=== PATIENT | female | born 1965 | race Caucasian/White ===

== ENCOUNTER 2016-08-05 11:54 | Inpatient (IN) | payer MEDICARE, OTHER ==
[~2016-08-05] VITALS: Ht 162.6 cm; Wt 80.4 kg
[~2016-08-05 11:54] MED LIST: CHLO100 PO; CHLO50 PO; DULO1CAP2 PO; GABA800T PO; LAMO100 PO; TEGR200T PO
[2016-08-05 12:28] VITALS: BP 132/76; PULSE 79; RESP 18; TEMP 97.9; O2SAT 97
[2016-08-05 13:28] LABS: BASOPHIL % 0.3 % (0.0-2.0); EOSINOPHIL % 0.3 % (0.0-4.0); HEMATOCRIT 37.2 % (35.0-46.0); HEMO FLAGS DIFF FINAL; LYMPH % 19.6 % (9.0-44.0); LYMPHOCYTE # 2.6 TH/MM3 (1.0-4.8); MEAN CELL VOLUME 91.7 FL (80.0-100.0); MEAN CORPUSCULAR HEMOGLOBIN 30.9 PG (27.0-34.0); MEAN CORPUSCULAR HGB CONC 33.7 % (32.0-36.0); MONO % 4.8 % (0.0-8.0); PLATELET COUNT 362 TH/MM3 (150-450); RED BLOOD COUNT 4.06 MIL/MM3 (4.00-5.30); RED CELL DISTRIBUTION WIDTH 12.8 % (11.6-17.2); WHITE BLOOD COUNT 13.3 TH/MM3 (4.0-11.0)
[2016-08-05 13:40] LABS: BLOOD, URINE NEG (NEG); GLUCOSE,URINE 1000 mg/dL (NEG); KETONE, URINE NEG (NEG); NITRITE,URINE NEG (NEG); PH, URINE 5.5 (5.0-8.5); URINE COLOR LIGHT-YELLOW (YELLW/STRAW)
[2016-08-05 13:41] LABS: ALT (GPT) 37 U/L (10-53); ANION GAP 11 MEQ/L (5-15); AST (GOT) 30 U/L (15-37); BICARBONATE 21.3 MEQ/L (21.0-32.0); CHLORIDE 104 MEQ/L (98-107); GLOMERULAR FILTRATION RATE 67 ML/MIN (>89); POTASSIUM 4.4 MEQ/L (3.5-5.1); SODIUM (NA) 136 MEQ/L (136-145)
[2016-08-05 13:50] LABS: ALKALINE PHOSPHATASE 91 U/L (45-117); BLOOD UREA NITROGEN 20 MG/DL (7-18); TOTAL BILIRUBIN ADULT 0.2 MG/DL (0.2-1.0)
[2016-08-05 13:51] LABS: ACETAMINOPHEN LESS THAN 2.0 MCG/ML (10.0-30.0)
[2016-08-05 13:52] LABS: COMMENT (UR) CULT NOT INDICATED; CULTURE IF INDICATED CULT NOT INDICATED
[2016-08-05 14:00] LABS: AMPHETAMINE, URINE NEG (NEG); BARBITURATES, URINE NEG (NEG); COCAINE, URINE NEG (NEG)
--- NOTE | 2016-08-05 14:18 | PD ---
HPI Chief Complaint: Medical Clearance Time Seen by Provider: 12:45 Travel History International Travel<30 days: No Contact w/Intl Traveler<30days: No Traveled to known affect area: No History of Present Illness HPI Patient's 51-year-old female who is brought into emergency Department under Christiansen act for suicidal ideations. Patient reports to me that she is suicidal. She states that she is tired of it all. She reports a history of suicide attempts, in January 2015. She reports taking pills, whenever pills she can get her hands on. She denies any drug use or alcohol use. She endorses visual and auditory hallucinations. Patient endorses a history of bipolar disorder with rapid cycling, psychosis, suicidal ideations, borderline personality disorder, PTSD, OCD. She denies any physical complaints at this time. PFSH Past Medical History Bipolar Disorder: Yes (with rapid cycling) Anxiety: Yes Depression: Yes Diabetes: Yes Patient Takes Glucophage: Yes Psychiatric: Yes (borderline personality disorder, PTSD, OCD, psychosis, paranoia) ?: Not Past Surgical History Section: Yes (x4) Hysterectomy: Yes Social History Alcohol Use: Yes Tobacco Use: No Substance Use: No Allergies-Medications (Allergen,Severity, Reaction): Coded Allergies: Depakote (Verified Allergy, Severe, Anaphylaxis, 08/05/16) Ibuprofen (Verified Allergy, Severe, Anaphylaxis, 08/05/16) Latex (Verified Allergy, Severe, Rash, 08/05/16) [place] (Verified Allergy, Severe, Anaphylaxis, 08/05/16) Aspirin (Verified Allergy, Unknown, 08/05/16) Nonsteroidal Anti-Inflammatory Agts (Verified Allergy, Unknown, 08/05/16) Reported Meds & Prescriptions Reported Meds & Active Scripts Active Thorazine 50 M50 Mg 50 Mg Tab 50 Mg PO DAILY@0600 Thorazine 50 M50 Mg 50 Mg Tab 50 Mg PO DAILY@1300 Thorazine 406254 Mg 100 Mg Tab 100 Mg PO HS Reported Tegretol (Carbamazepine) 200 Mg Tab 200 Mg PO BID Lamictal (Lamotrigine) 100 Mg Tab 100 Mg PO BID Duloxetine DR (Duloxetine HCl) 30 Mg Capdr 30 Mg PO DAILY [id number] M1 800 Mg Tab 800 Mg PO QID Review of Systems Except as stated in HPI: all other systems reviewed are Neg Psychiatric: Positive: Depression, Suicidal Ideations, Mood Disorder, No: Substance Abuse, Homicidal Ideation Physical Exam Narrative GENERAL: Well-developed, well-nourished, alert female. Sitting comfortably in the ambulance, in no acute distress. SKIN: Warm and dry. HEAD: Atraumatic. Normocephalic. EYES: Pupils equal and round. No scleral icterus. No injection or drainage. ENT: No nasal bleeding or discharge. Mucous membranes pink and moist. NECK: Trachea midline. No JVD. CARDIOVASCULAR: Regular rate and rhythm. No murmur appreciated. RESPIRATORY: No accessory muscle use. Clear to auscultation. Breath sounds equal bilaterally. GASTROINTESTINAL: Abdomen soft, non-tender, nondistended. Hepatic and splenic margins not palpable. MUSCULOSKELETAL: No obvious deformities. No clubbing. No cyanosis. No edema. NEUROLOGICAL: Awake and alert. No obvious cranial nerve deficits. Motor grossly within normal limits. Normal speech. PSYCHIATRIC: Depressed mood and affect; insight and judgment impaired Data Data Last Documented VS Vital Signs Date Time Temp Pulse Resp B/P Pulse Ox O2 Delivery O2 Flow Rate FiO2 08/05/16 12:28 97.9 79 18 132/76 97 Orders Complete Blood Count With Diff (08/05/16 12:34) Comprehensive Metabolic Panel (08/05/16 12:34) Urinalysis - C+S If Indicated (08/05/16 12:34) Drug Screen, Random Urine (08/05/16 12:34) Alcohol (Ethanol) (08/05/16 12:34) Salicylates (Aspirin) (08/05/16 12:34) Tylenol (Acetaminophen) (08/05/16 12:34) Psych Screen (08/05/16 12:34) Labs Laboratory Tests Test 08/05/16 08/05/16 08/05/16 00:00 13:00 13:10 Urine Opiates Screen NEG Urine Barbiturates Screen NEG Urine Amphetamines Screen NEG Urine Benzodiazepines Screen NEG Urine Cocaine Screen NEG Urine Cannabinoids Screen NEG Urine Color LIGHT-YELLOW Urine Turbidity CLEAR Urine pH 5.5 Urine Specific [place] 1.008 Urine Protein NEG mg/dL Urine Glucose (UA) 1000 mg/dL Urine Ketones NEG mg/dL Urine Occult Blood NEG Urine Nitrite NEG Urine Bilirubin NEG Urine Urobilinogen LESS THAN 2.0 MG/DL Urine Leukocyte Esterase NEG Urine WBC LESS THAN 1 /hpf Microscopic Urinalysis Comment CULT NOT INDICATED White Blood Count 13.3 TH/MM3 Red Blood Count 4.06 MIL/MM3 Hemoglobin 12.5 GM/DL Hematocrit 37.2 % Mean Corpuscular Volume 91.7 FL Mean Corpuscular Hemoglobin 30.9 PG Mean Corpuscular Hemoglobin 33.7 % Concent Red Cell Distribution Width 12.8 % Platelet Count 362 TH/MM3 Mean Platelet Volume 7.0 FL Neutrophils (%) (Auto) 75.0 % Lymphocytes (%) (Auto) 19.6 % Monocytes (%) (Auto) 4.8 % Eosinophils (%) (Auto) 0.3 % Basophils (%) (Auto) 0.3 % Neutrophils # (Auto) 10.0 TH/MM3 Lymphocytes # (Auto) 2.6 TH/MM3 Monocytes # (Auto) 0.6 TH/MM3 Eosinophils # (Auto) 0.0 TH/MM3 Basophils # (Auto) 0.0 TH/MM3 CBC Comment DIFF FINAL Differential Comment Sodium Level 136 MEQ/L Potassium Level 4.4 MEQ/L Chloride Level 104 MEQ/L Carbon Dioxide Level 21.3 MEQ/L Anion Gap 11 MEQ/L Blood Urea Nitrogen 20 MG/DL Creatinine 0.88 MG/DL Estimat Glomerular Filtration 67 ML/MIN Rate Random Glucose 106 MG/DL Calcium Level 9.4 MG/DL Total Bilirubin 0.2 MG/DL Aspartate Amino Transf 30 U/L (AST/SGOT) Alanine Aminotransferase 37 U/L (ALT/SGPT) Alkaline Phosphatase 91 U/L Total Protein 8.7 GM/DL Albumin 4.4 GM/DL Salicylates Level LESS THAN 1.7 MG/DL Acetaminophen Level LESS THAN 2.0 MCG/ML Ethyl Alcohol Level LESS THAN 3 MG/DL MDM Medical Decision Making Medical Screen Exam Complete: Yes Emergency Medical Condition: Yes Interpretation(s) Laboratory Tests Test 08/05/16 08/05/16 08/05/16 00:00 13:00 13:10 Urine Opiates Screen NEG Urine Barbiturates Screen NEG Urine Amphetamines Screen NEG Urine Benzodiazepines Screen NEG Urine Cocaine Screen NEG Urine Cannabinoids Screen NEG Urine Color LIGHT-YELLOW Urine Turbidity CLEAR Urine pH 5.5 Urine Specific [place] 1.008 Urine Protein NEG mg/dL Urine Glucose (UA) 1000 mg/dL Urine Ketones NEG mg/dL Urine Occult Blood NEG Urine Nitrite NEG Urine Bilirubin NEG Urine Urobilinogen LESS THAN 2.0 MG/DL Urine Leukocyte Esterase NEG Urine WBC LESS THAN 1 /hpf Microscopic Urinalysis Comment CULT NOT INDICATED White Blood Count 13.3 TH/MM3 Red Blood Count 4.06 MIL/MM3 Hemoglobin 12.5 GM/DL Hematocrit 37.2 % Mean Corpuscular Volume 91.7 FL Mean Corpuscular Hemoglobin 30.9 PG Mean Corpuscular Hemoglobin 33.7 % Concent Red Cell Distribution Width 12.8 % Platelet Count 362 TH/MM3 Mean Platelet Volume 7.0 FL Neutrophils (%) (Auto) 75.0 % Lymphocytes (%) (Auto) 19.6 % Monocytes (%) (Auto) 4.8 % Eosinophils (%) (Auto) 0.3 % Basophils (%) (Auto) 0.3 % Neutrophils # (Auto) 10.0 TH/MM3 Lymphocytes # (Auto) 2.6 TH/MM3 Monocytes # (Auto) 0.6 TH/MM3 Eosinophils # (Auto) 0.0 TH/MM3 Basophils # (Auto) 0.0 TH/MM3 CBC Comment DIFF FINAL Differential Comment Sodium Level 136 MEQ/L Potassium Level 4.4 MEQ/L Chloride Level 104 MEQ/L Carbon Dioxide Level 21.3 MEQ/L Anion Gap 11 MEQ/L Blood Urea Nitrogen 20 MG/DL Creatinine 0.88 MG/DL Estimat Glomerular Filtration 67 ML/MIN Rate Random Glucose 106 MG/DL Calcium Level 9.4 MG/DL Total Bilirubin 0.2 MG/DL Aspartate Amino Transf 30 U/L (AST/SGOT) Alanine Aminotransferase 37 U/L (ALT/SGPT) Alkaline Phosphatase 91 U/L Total Protein 8.7 GM/DL Albumin 4.4 GM/DL Salicylates Level LESS THAN 1.7 MG/DL Acetaminophen Level LESS THAN 2.0 MCG/ML Ethyl Alcohol Level LESS THAN 3 MG/DL Vital Signs Date Time Temp Pulse Resp B/P Pulse Ox O2 Delivery O2 Flow Rate FiO2 08/05/16 12:28 97.9 79 18 132/76 97 Differential Diagnosis Depression versus mood disorder versus substance abuse versus psychosis versus suicidal ideations versus Narrative Course Patient is a 51-year-old female who was brought into the emergency department for suicidal ideations under a Christiansen act. Patient admits to having suicidal thoughts as well as previous suicide attempts. She had no physical complaints at this time. Labs reviewed and are unremarkable. Patient's vital signs are stable. Patient is medically cleared for psychiatric evaluation at this time. Diagnosis Primary Impression: Medical clearance for psychiatric admission Condition: Stable Alonso,Ricarda [employer] SWITCH[employer] Aug 05, 2016 14:18
[2016-08-05] MEDS ORDERED: THORAZINE PO (16:40)
[2016-08-05] MEDS ORDERED: TRAZ100T4 PO (16:40)
[2016-08-05] MEDS ORDERED: CYMB60CA PO (16:40)
[2016-08-05] MEDS ORDERED: PERC5TAB12 PO (16:40)
[2016-08-05] MEDS ORDERED: diphenhydrAMINE HCL 50 MG CAP PO PRN (20:45)
[2016-08-05] MEDS ORDERED: LORazepam 2 MG/ML VIAL IM PRN (20:45)
[2016-08-05] MEDS ORDERED: ACETAMINOPHEN 325 MG TAB PO PRN (20:45)
[2016-08-05] MEDS ORDERED: BENZTROPINE MESYLATE 2 MG/2 ML VIAL IM PRN (20:45)
[2016-08-05] MEDS ORDERED: ALUMINUM/MAGNESIUM/SIMETH 30 ML CUP PO PRN (20:45)
[2016-08-05] MEDS ORDERED: MAGNESIUM HYDROXIDE SUSP 30 ML CUP PO PRN (20:45)
[2016-08-05] MEDS ORDERED: BENZTROPINE MESYLATE 1 MG TAB PO PRN (20:45)
[2016-08-05 22:00] VITALS: BP 109/60; PULSE 68; RESP 17; O2SAT 96
[2016-08-06 00:24] VITALS: BP 127/84; PULSE 71; RESP 18; TEMP 98.2; O2SAT 96
[2016-08-06] MEDS: LORazepam 1 MG TAB PO PRN ×3 (00:59→18:27)
[2016-08-06 05:52] VITALS: BP 124/80; PULSE 68; RESP 18; TEMP 98; O2SAT 96
[2016-08-06 07:21] LABS: AUTOMATED NEUTROPHIL # 7.7 TH/MM3 (1.8-7.7); BASOPHIL % 0.1 % (0.0-2.0); EOSINOPHIL % 0.4 % (0.0-4.0); HEMATOCRIT 37.7 % (35.0-46.0); HEMO FLAGS DIFF FINAL; LYMPH % 21.9 % (9.0-44.0); LYMPHOCYTE # 2.3 TH/MM3 (1.0-4.8); MEAN CORPUSCULAR HEMOGLOBIN 30.6 PG (27.0-34.0); MONO % 5.4 % (0.0-8.0); NEUT % 72.2 % (16.0-70.0); PLATELET COUNT 352 TH/MM3 (150-450); RED BLOOD COUNT 4.19 MIL/MM3 (4.00-5.30); RED CELL DISTRIBUTION WIDTH 12.8 % (11.6-17.2); WHITE BLOOD COUNT 10.6 TH/MM3 (4.0-11.0)
[2016-08-06 07:37] LABS: ANION GAP 11 MEQ/L (5-15); AST (GOT) 21 U/L (15-37); BICARBONATE 22.4 MEQ/L (21.0-32.0); BLOOD UREA NITROGEN 20 MG/DL (7-18); CHLORIDE 105 MEQ/L (98-107); GLOMERULAR FILTRATION RATE 72 ML/MIN (>89); POTASSIUM 3.9 MEQ/L (3.5-5.1); SODIUM (NA) 138 MEQ/L (136-145)
[2016-08-06 07:48] LABS: ALKALINE PHOSPHATASE 86 U/L (45-117); ALT (GPT) 32 U/L (10-53); HDL CHOLESTEROL 42.8 MG/DL (40.0-60.0); TOTAL BILIRUBIN ADULT 0.2 MG/DL (0.2-1.0)
[2016-08-06] MEDS: REMOVE OLD PATCH T-DERMAL SCH (09:00)
[2016-08-06] MEDS: NICOTINE 21 MG/24 HR PATCH T-DERMAL SCH (09:00)
[2016-08-06] MEDS ORDERED: DEXTROSE 50% IN WATER 50 ML VIAL(D50) IV PUSH PRN (12:30)
[2016-08-06] MEDS ORDERED: GLUCAGON 1 MG/ML VIAL OTHER PRN (12:30)
[2016-08-06] MEDS: GABAPENTIN 400 MG CAP PO SCH ×3 (13:00→20:53)
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
[2016-08-06] MEDS: oxyCODONE/ACETAMINOPHEN 5 MG/325 MG TAB PO PRN ×2 (14:13→20:57)
[2016-08-06] MEDS ORDERED: CHLO100T2 PO (15:52)
--- NOTE | 2016-08-06 15:53 | PD.CONS ---
HPI Service [facility] Consult Requested By Diabetes Reason for Consult This is a 51-year-old female with history of diabetes mellitus, anxiety, depression, bipolar disorder and chronic back pain, presented to emergency department as a Christiansen act for suicidal ideations. We are being consulted for diabetes mellitus. Per patient, she was diagnosed with diabetes a few months ago and she was started on Januvia and Invokamet. However the latter is not available in the hospital. Per patient, she doesn't know her hemoglobin A1c. She denies any chest pain, shortness, nausea, vomiting, polyuria or polydipsia. Primary Care Physician No Primary Care Physician Diagnoses: Review of Systems ROS Limitations: Other (All other pertinent systems were reviewed and are negative.) Past Family Social History Allergies: Coded Allergies: Depakote (Verified Allergy, Severe, Anaphylaxis, 08/05/16) Ibuprofen (Verified Allergy, Severe, Anaphylaxis, 08/05/16) Latex (Verified Allergy, Severe, Rash, 08/05/16) [place] (Verified Allergy, Severe, Anaphylaxis, 08/05/16) Aspirin (Verified Allergy, Unknown, 08/05/16) Nonsteroidal Anti-Inflammatory Agts (Verified Allergy, Unknown, 08/05/16) Past Medical History Diabetes mellitus Anxiety Bipolar disorder Depression PTSD Chronic back pain DJD Past Surgical History section hysterectomy Reported Medications Chlorpromazine (Chlorpromazine HCl) 100 Mg Tab 100 Mg PO BID Percocet (Oxycodone-Acetaminophen) 5-325 mg Tab 1 Tab PO Q6H PRN Trazodone (Trazodone HCl) 100 Mg Tab 100 Mg PO HS Cymbalta DR (Duloxetine HCl) 60 Mg Capdr 60 Mg PO BID Family History Father has diabetes Social History Patient smokes, about 40 years, stopped in March. Occasional alcohol use. Physical Exam Vital Signs Vital Signs Date Time Temp Pulse Resp B/P Pulse Ox O2 Delivery O2 Flow Rate FiO2 08/06/16 05:52 98.0 68 18 124/80 96 08/06/16 00:24 98.2 71 18 127/84 96 08/05/16 22:00 68 17 109/60 96 Room Air Physical Exam Not in distress, well-nourished, looks stated age PERRL, pink conjunctiva without injection, anicteric Nose without bleeding, airway patent, oropharynx clear Supple neck, no masses or thyromegaly, trachea midline Normal rate and regular rhythm, no murmurs gallops or rubs appreciated. Clear to auscultation and symmetric bilaterally, normal respiratory effort. Normal bowel sounds, soft, non-tender, nondistended, no guarding. Extremities without clubbing, cyanosis, or edema. No rash of generalized distribution. Skin is warm and dry. AAO x3, no cranial nerve deficits, moves all 4 extremities, no focal neurologic deficits Normal mood, appropriate affect Laboratory Laboratory Tests Test 08/06/16 06:07 White Blood Count 10.6 Red Blood Count 4.19 Hemoglobin 12.8 Hematocrit 37.7 Mean Corpuscular Volume 90.0 Mean Corpuscular Hemoglobin 30.6 Mean Corpuscular Hemoglobin 34.0 Concent Red Cell Distribution Width 12.8 Platelet Count 352 Mean Platelet Volume 7.2 Neutrophils (%) (Auto) 72.2 Lymphocytes (%) (Auto) 21.9 Monocytes (%) (Auto) 5.4 Eosinophils (%) (Auto) 0.4 Basophils (%) (Auto) 0.1 Neutrophils # (Auto) 7.7 Lymphocytes # (Auto) 2.3 Monocytes # (Auto) 0.6 Eosinophils # (Auto) 0.0 Basophils # (Auto) 0.0 CBC Comment DIFF FINAL Differential Comment Sodium Level 138 Potassium Level 3.9 Chloride Level 105 Carbon Dioxide Level 22.4 Anion Gap 11 Blood Urea Nitrogen 20 Creatinine 0.83 Estimat Glomerular Filtration 72 Rate Random Glucose 129 Calcium Level 9.0 Total Bilirubin 0.2 Aspartate Amino Transf 21 (AST/SGOT) Alanine Aminotransferase 32 (ALT/SGPT) Alkaline Phosphatase 86 Total Protein 8.3 Albumin 4.1 Triglycerides Level 544 Cholesterol Level 262 LDL Cholesterol HDL Cholesterol 42.8 Cholesterol/HDL Ratio 6.12 Thyroid Stimulating Hormone 2.040 3rd Gen Result Diagram: 08/06/16 0607 08/06/16 0607 Assessment and Plan Assessment and Plan This is a 51-year-old female with history of suicidal ideations and diabetes admitted to psych unit for suicidal ideations. We were consulted for further management for diabetes Diabetes mellitus - ? Control, check hemoglobin A1c, continue sliding scale for now, since Invokamet is not available, can start metformin 500 mg twice a day and Januvia. Check beaches, we will follow along. PTSD, depression-further management per psychiatry Dyslipidemia, hypertriglyceridemia- newly diagnosed, we'll start statin Thank you very much for this consult, we'll follow along with you. Anni Ellis MD Aug 06, 2016 15:53
[2016-08-06 15:54] LABS: HEMOGLOBIN A1a 0.9 %; HEMOGLOBIN A1b 1.8 %; HEMOGLOBIN Ao 86.1 %; HEMOGLOBIN LA1C 2.1 %; HEMOGLOBIN P3 3.7 %
[2016-08-06] MEDS: INSULIN ASPART SUPPLEMENTAL SCALE SQ SCH ×2 (16:00→21:00)
[2016-08-06] MEDS: metFORMIN HCL 500 MG TAB PO SCH (18:25)
[2016-08-06 18:47] VITALS: BP 121/68; PULSE 77; RESP 18; TEMP 98.8; O2SAT 99
[2016-08-06] MEDS: PRAVASTATIN SOD 40 MG TAB PO SCH (20:52)
[2016-08-06] MEDS: DULoxetine HCl DR 60 MG CAP PO SCH (20:52)
[2016-08-06] MEDS: traZODone HCL 50 MG TAB PO SCH (20:52)
[2016-08-06] MEDS: lamoTRIgine 25 MG TAB PO SCH (20:53)
[2016-08-06] MEDS ORDERED: INVOKAMET PO SCH (21:00)
[2016-08-06] MEDS: GEMFIBROZIL 600 MG TAB PO SCH (21:48)
[2016-08-06 22:16] LABS: HEMOGLOBIN A1a 0.8 %; HEMOGLOBIN A1b 1.1 %; HEMOGLOBIN Ao 86.2 %; HEMOGLOBIN F 0.7 %; HEMOGLOBIN LA1C 1.9 %; HEMOGLOBIN P3 3.7 %
[2016-08-07 05:39] VITALS: BP 143/87; PULSE 85; RESP 16; TEMP 97.8; O2SAT 95
[2016-08-07] MEDS: INSULIN ASPART SUPPLEMENTAL SCALE SQ SCH ×4 (06:17→21:00)
[2016-08-07] MEDS: GABAPENTIN 400 MG CAP PO SCH ×4 (08:25→20:35)
[2016-08-07] MEDS: metFORMIN HCL 500 MG TAB PO SCH ×2 (08:26→18:16)
[2016-08-07] MEDS: oxyCODONE/ACETAMINOPHEN 5 MG/325 MG TAB PO PRN ×4 (08:26→15:56)
[2016-08-07] MEDS: DULoxetine HCl DR 60 MG CAP PO SCH ×2 (08:26→20:36)
[2016-08-07] MEDS: NICOTINE 21 MG/24 HR PATCH T-DERMAL SCH (08:27)
[2016-08-07] MEDS: REMOVE OLD PATCH T-DERMAL SCH (09:00)
[2016-08-07] MEDS: LORazepam 1 MG TAB PO PRN ×3 (10:55→16:37)
--- NOTE | 2016-08-07 14:23 | HHI.PYPN ---
Subjective Remarks Patient seen and examined with counselor. Chart reviewed. Case discussed with nursing staff. On my examination today, the patient reports that her mood is a little better but she complains of high anxiety. When I question her further about this she describes more of a physical sensation saying "I can't sit still. " This is apparently fairly long-standing, and her sense of restlessness is greater during the day than at night. She cannot recall if this sensation started after a particular medication addition or adjustment. Suicidal ideation is lessening and the patient denies any urge to hurt herself on the inpatient psychiatric unit. No other potential side effects from medications. Review of Systems Other Patient is troubled by a sense of restlessness. No other physical complaints today. Objective Alert: Yes [place]: Person (O x 3) Mood: Anxious Affect: Blunted Memory Intact: Comment (intact) Hallucinations: Other (no AVH) Delusions: No Delusion Type: Other (no delusions) Suicidal: Ideation (suicidal ideation lessening. No reported urge to hurt herself on the inpatient psychiatric unit.) Homicidal: Ideation (no homicidal ideation) Insight/Judgement Fair Remarks No hand tremor, no dystonia, no dyskinesia noted. Thought processes linear. Speech within normal limits for rate, tone and volume. No visible rash. Labs Labs reviewed. Vitals/IOs Vital Signs Date Time Temp Pulse Resp B/P Pulse Ox O2 Delivery O2 Flow Rate FiO2 08/07/16 05:39 97.8 85 16 143/87 95 08/05/16 22:00 Room Air Assessment & Plan Problem List: (1) Atypical bipolar disorder Assessment & Plan: Rule out component of akathisia from antipsychotic. ICD Code: F31.89 Assessment & Plan Patient describes an inner sense of restlessness and urge to move it sounds like it might be akathisia related to her use of antipsychotics. After discussion of the risks and benefits, we'll add Inderal 10 mg 3 times a day for the management of this restlessness. I have counseled the patient regarding safe standing on a beta jessica. Continue other psychotropics as ordered. Continue other medications and care as ordered. Justification for Cont. Inpt. Monitoring for impairments in safety. Education adjustments. Complicating conditions. Risk for decompensation. Discharge Planning Pending psychiatric stabilization. Request HC Surrog/Guard Advoc?: No Nemesio Eddy MD 20, 2017 14:23
[2016-08-07] MEDS: PROPRANOLOL HCL 10 MG TAB PO SCH ×2 (15:55→22:38)
[2016-08-07 19:29] VITALS: BP 118/72; PULSE 87; RESP 16; TEMP 98; O2SAT 96
[2016-08-07] MEDS: GEMFIBROZIL 600 MG TAB PO SCH (20:36)
[2016-08-07] MEDS: traZODone HCL 50 MG TAB PO SCH (20:36)
[2016-08-07] MEDS: lamoTRIgine 25 MG TAB PO SCH (20:36)
[2016-08-07] MEDS: PRAVASTATIN SOD 40 MG TAB PO SCH (20:36)
[2016-08-08] MEDS: PROPRANOLOL HCL 10 MG TAB PO SCH ×3 (05:28→21:20)
[2016-08-08] MEDS: INSULIN ASPART SUPPLEMENTAL SCALE SQ SCH ×4 (05:45→20:40)
[2016-08-08 06:20] VITALS: BP 137/75; PULSE 82; RESP 18; TEMP 97.7; O2SAT 97
[2016-08-08 08:00] VITALS: BP 116/76; PULSE 98; RESP 18; TEMP 98.4; O2SAT 98
[2016-08-08] MEDS: REMOVE OLD PATCH T-DERMAL SCH (09:00)
[2016-08-08] MEDS: metFORMIN HCL 500 MG TAB PO SCH ×2 (09:12→18:37)
[2016-08-08] MEDS: NICOTINE 21 MG/24 HR PATCH T-DERMAL SCH ×2 (09:12→09:30)
[2016-08-08] MEDS: GABAPENTIN 400 MG CAP PO SCH ×4 (09:12→20:36)
[2016-08-08] MEDS: DULoxetine HCl DR 60 MG CAP PO SCH ×2 (09:14→20:38)
[2016-08-08] MEDS: oxyCODONE/ACETAMINOPHEN 5 MG/325 MG TAB PO PRN ×2 (09:29→16:34)
--- NOTE | 2016-08-08 12:41 | HHI.PYPN ---
Subjective Remarks Pt seen and discussed with staff. She is compliant with medications and denies side effects. Mood remains depressed with suicidal ideations. She reports that at home she was not compliant with psychiatric medications. "I can take them here but when I'm home it gets all mixed up." No HI. Review of Systems Psychiatric: COMPLAINS OF: Depression, Suicidal Ideation Objective Alert: Yes [place]: Person (O x 3) Mood: Anxious Affect: Blunted Memory Intact: Comment (intact) Hallucinations: Other (no AVH) Delusions: No Delusion Type: Other (no delusions) Suicidal: Ideation (suicidal ideation lessening. No reported urge to hurt herself on the inpatient psychiatric unit.) Homicidal: Ideation (no homicidal ideation) Insight/Judgement limited Vitals/IOs Vital Signs Date Time Temp Pulse Resp B/P Pulse Ox O2 Delivery O2 Flow Rate FiO2 08/08/16 08:00 98.4 98 18 116/76 98 08/05/16 22:00 Room Air Assessment & Plan Problem List: (1) Atypical bipolar disorder ICD Code: F31.89 Assessment & Plan continue current tx plan. Estimated LOS: days Justification for Cont. Inpt. impairments in safety Request HC Surrog/Guard Advoc?: No Annetta Farias MD Aug 08, 2016 12:41
[2016-08-08] MEDS: LORazepam 1 MG TAB PO PRN (12:51)
[2016-08-08 19:22] VITALS: BP 102/66; PULSE 75; RESP 17; TEMP 98.1; O2SAT 96
[2016-08-08] MEDS: PRAVASTATIN SOD 40 MG TAB PO SCH (20:35)
[2016-08-08] MEDS: GEMFIBROZIL 600 MG TAB PO SCH (20:36)
[2016-08-08] MEDS: lamoTRIgine 25 MG TAB PO SCH (20:36)
[2016-08-08] MEDS: traZODone HCL 50 MG TAB PO SCH (20:36)
[2016-08-09] MEDS: PROPRANOLOL HCL 10 MG TAB PO SCH ×3 (05:43→20:33)
[2016-08-09 06:12] VITALS: BP 118/70; PULSE 69; RESP 16; TEMP 97.4; O2SAT 95
[2016-08-09] MEDS: INSULIN ASPART SUPPLEMENTAL SCALE SQ SCH (06:40)
[2016-08-09] MEDS: DULoxetine HCl DR 60 MG CAP PO SCH ×2 (08:30→20:33)
[2016-08-09] MEDS: GABAPENTIN 400 MG CAP PO SCH ×4 (08:31→20:33)
[2016-08-09] MEDS: metFORMIN HCL 500 MG TAB PO SCH ×2 (08:32→16:58)
[2016-08-09] MEDS: REMOVE OLD PATCH T-DERMAL SCH (09:00)
[2016-08-09] MEDS: oxyCODONE/ACETAMINOPHEN 5 MG/325 MG TAB PO PRN ×3 (09:34→22:02)
--- NOTE | 2016-08-09 10:25 | HHI.PR ---
Subjective Remarks Follow-up visit hypertension, diabetes, chronic back pain. Patient seen today. States she is doing well. Discuss lab results and review of medications. Denies pain and discomfort. Denies SOB/ dyspnea. Denies chest pain, palpitations, headaches, dizziness. Denies fevers, chills, n/v/d. Objective Vitals Vital Signs Date Time Temp Pulse Resp B/P Pulse Ox O2 Delivery O2 Flow Rate FiO2 08/09/16 06:12 97.4 69 16 118/70 95 08/08/16 19:22 98.1 75 17 102/66 96 Result Diagram: 08/06/1660608/06/16 0607 Objective Remarks GENERAL: This is a well-nourished, well-developed patient, in no apparent distress. HEENT: Normocephalic. Pupils equal round and reactive. Nose without bleeding. Airway patent. NECK: Trachea midline. No JVD. Supple. CARDIOVASCULAR: Regular rate and rhythm without murmurs, gallops, or rubs. RESPIRATORY: Clear to auscultation. Breath sounds equal bilaterally. No wheezes , rales, or rhonchi. GASTROINTESTINAL: Abdomen soft, non-tender, nondistended. Bowel Sounds normoactive x4. MUSCULOSKELETAL: Extremities without clubbing, cyanosis, or edema. NEUROLOGICAL: Awake and alert. Oriented x 3. No focal neuro deficit. BEST. Normal speech. A/P Problem List: (1) DM (diabetes mellitus) ICD Code: E11.9 Status: Acute (2) HTN (hypertension) ICD Code: I10 Status: Acute (3) Dyslipidemia ICD Code: E78.5 Status: Acute Assessment and Plan This is a 51-year-old female with history of suicidal ideations and diabetes admitted to psych unit for suicidal ideations. We were consulted for further management for diabetes Diabetes mellitus - patient was on INVOKANAMET as an outpatient. Started on metformin 500mg BID and Januvia, ISS - Hemoglobin A1c 5.2 - DC Januvia, continue with his metformin 500 twice a day. Discussed with patient to continue with metformin, and to not take INVOKANAMET. Continue with lifestyle change avoiding concentrated sweets and dietary changes as well as physical activity. She will follow up with her PCP as an outpatient to monitor hemoglobin A1c after 3 months. Verbalized understanding. PTSD, depression-further management per psychiatry Dyslipidemia, hypertriglyceridemia- started on pravastatin 40 mg. Discussed with patient, nursing Stable from Hospitalist standpoint. We will sign off. Reconsult as needed. Written by Zora Garza, acting as scribe for Dr. Ellis on 08/09/16 at 09: 25. The documentation accurately reflects the work performed [id number] by me on at [id number] Zora Alcocer Aug 09, 2016 10:25 Anni Ellis MD Aug 09, 2016 10:58
--- NOTE | 2016-08-09 13:28 | HHI.PYPN ---
Subjective Remarks Pt seen and discussed with staff. She reports mood is improving. She reports that she had SI yesterday but none today so far. Anxiety has decreased. She is tolerating medications without side effects. No SI/HI Objective Alert: Yes [place]: Person, Place, Date Mood: Calm, Depressed Affect: Restricted Memory Intact: Comment (intact) Hallucinations: Other (no AVH) Delusions: No Delusion Type: Other (no delusions) Suicidal: Ideation (suicidal ideation lessening. 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 Estimated LOS: days Justification for Cont. Inpt. risk of decompensation. Request HC Surrog/Guard Advoc?: Annetta Hazel MD Aug 09, 2016 13:27
[2016-08-09] MEDS: lamoTRIgine 25 MG TAB PO SCH (20:33)
[2016-08-09] MEDS: PRAVASTATIN SOD 40 MG TAB PO SCH (20:33)
[2016-08-09] MEDS: GEMFIBROZIL 600 MG TAB PO SCH (20:33)
[2016-08-09] MEDS: traZODone HCL 50 MG TAB PO SCH (20:33)
[2016-08-09 21:11] VITALS: BP 112/72; PULSE 79; TEMP 97.5; O2SAT 98
[2016-08-10 05:25] VITALS: BP 112/65; PULSE 62; RESP 15; TEMP 97.9; O2SAT 96
[2016-08-10] MEDS: PROPRANOLOL HCL 10 MG TAB PO SCH ×3 (05:26→21:25)
[2016-08-10] MEDS: REMOVE OLD PATCH T-DERMAL SCH (09:00)
[2016-08-10] MEDS: NICOTINE 21 MG/24 HR PATCH T-DERMAL SCH (09:00)
[2016-08-10] MEDS: GABAPENTIN 400 MG CAP PO SCH ×4 (09:02→20:29)
[2016-08-10] MEDS: DULoxetine HCl DR 60 MG CAP PO SCH ×2 (09:03→20:29)
[2016-08-10] MEDS: metFORMIN HCL 500 MG TAB PO SCH ×2 (09:03→17:46)
[2016-08-10] MEDS: oxyCODONE/ACETAMINOPHEN 5 MG/325 MG TAB PO PRN ×3 (09:46→23:06)
[2016-08-10 13:30] VITALS: BP 111/78; PULSE 63
--- NOTE | 2016-08-10 15:31 | HHI.PYPN ---
Subjective Remarks Patient seen and examined. Chart reviewed. Case discussed with nursing staff. No problematic behaviors reported. On my examination today, the patient is somewhat more dysphoric than she was when last we spoke. She says that she " had a really crappy day today." She says that she participated in psychotherapy group which stirred up some latent issues that are distressing her. She endorses vague suicidal ideation but denies any specific plan or intent at this time. Denies any urge to hurt herself on the unit. We discuss utilizing strategies to observe her negative feeling state, rather than engaging with it viscerally as she is now. Denies side effects from medications. Patient would like to titrate her Lamictal. Review of Systems Other No physical complaints. Objective Alert: Yes [place]: Person, Place, Date Mood: Depressed Affect: Restricted Memory Intact: Comment (remains intact) Hallucinations: Other (None) Delusions: No Delusion Type: Other (No delusional material) Suicidal: Ideation (+SI. No plan. No intent. No urge to hurt self on unit.) Homicidal: Ideation (None) Insight/Judgement Fair Remarks TP linear. Speech wnl for rate. No motoric abnormalities noted. No visible rash. No c/o rash. Labs Labs reviewed. No new labs. 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 Continue other psychotropics as ordered. Continue other medications and care as ordered. Justification for Cont. Inpt. Concern for impairments in safety. Medication adjustments. Risk for decompensation. Discharge Planning Pending psychiatric stabilization Request HC Surrog/Guard Advoc?: No Nemesio Eddy MD Aug 10, 2016 15:31
[2016-08-10 19:00] VITALS: BP 119/63; PULSE 72; RESP 16; TEMP 98.3; O2SAT 97
[2016-08-10] MEDS: PRAVASTATIN SOD 40 MG TAB PO SCH (20:29)
[2016-08-10] MEDS: lamoTRIgine 25 MG TAB PO SCH (20:29)
[2016-08-10] MEDS: traZODone HCL 50 MG TAB PO SCH (20:30)
[2016-08-10] MEDS: GEMFIBROZIL 600 MG TAB PO SCH (20:30)
[2016-08-10] MEDS: LORazepam 1 MG TAB PO PRN (20:30)
[2016-08-11] MEDS: PROPRANOLOL HCL 10 MG TAB PO SCH ×3 (05:37→21:48)
[2016-08-11 06:25] VITALS: BP 116/80; PULSE 76; RESP 17; TEMP 97.1
[2016-08-11] MEDS: DULoxetine HCl DR 60 MG CAP PO SCH ×2 (08:50→20:37)
[2016-08-11] MEDS: GABAPENTIN 400 MG CAP PO SCH ×4 (08:50→20:37)
[2016-08-11] MEDS: lamoTRIgine 25 MG TAB PO SCH ×2 (08:50→20:37)
[2016-08-11] MEDS: oxyCODONE/ACETAMINOPHEN 5 MG/325 MG TAB PO PRN ×2 (08:51→17:19)
[2016-08-11] MEDS: metFORMIN HCL 500 MG TAB PO SCH ×2 (08:51→17:20)
[2016-08-11 14:00] VITALS: BP 109/66; PULSE 69
--- NOTE | 2016-08-11 17:19 | HHI.PYPN ---
Subjective Remarks Pt seen and examined. Chart reviewed. Case d/w RN. Patient now with walker because she was complaining of some unsteadiness on her feet related to old ankle injury. No falls. On my examination today, patient is in better spirits today versus yesterday. She says that she has been dosing throughout the day, which is not undesirable in her case, she says. She denies any SI. She is anticipating a visit from her mother this evening and hopes that it goes well. Denies side effects from meds. Review of Systems Other Besides above, no physical complaints. Objective Alert: Yes [place]: Person, Place, Date Mood: Depressed (less so today) Affect: Blunted Memory Intact: Comment (Intact on clinical exam.) Hallucinations: Other (No AVH) Delusions: No Delusion Type: Other (No evident delusions) Suicidal: Ideation (Denies SI) Homicidal: Ideation (No HI) Insight/Judgement Fair Remarks TP linear. No visible rash. Labs Labs reviewed. No new labs. 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 Continue other medications and care as ordered. PT eval and falls prec. Justification for Cont. Inpt. Monitoring for safety. Risk for decompensation. Discharge Planning Pending psychiatric stabilization. Request HC Surrog/Guard Advoc?: No Nemesio Eddy MD Aug 11, 2016 17:19
[2016-08-11 18:30] VITALS: BP 107/71; PULSE 74; RESP 18; TEMP 97.8; O2SAT 98
[2016-08-11] MEDS: PRAVASTATIN SOD 40 MG TAB PO SCH (20:36)
[2016-08-11] MEDS: LORazepam 1 MG TAB PO PRN (20:37)
[2016-08-11] MEDS: traZODone HCL 50 MG TAB PO SCH (20:37)
[2016-08-11] MEDS: GEMFIBROZIL 600 MG TAB PO SCH (20:37)
[2016-08-12] MEDS: PROPRANOLOL HCL 10 MG TAB PO SCH ×4 (06:00→20:44)
[2016-08-12] MEDS: lamoTRIgine 25 MG TAB PO SCH ×2 (08:25→20:45)
[2016-08-12] MEDS: metFORMIN HCL 500 MG TAB PO SCH ×2 (08:26→17:48)
[2016-08-12] MEDS: oxyCODONE/ACETAMINOPHEN 5 MG/325 MG TAB PO PRN ×3 (08:26→21:20)
[2016-08-12] MEDS: GABAPENTIN 400 MG CAP PO SCH ×4 (08:26→20:43)
[2016-08-12] MEDS: DULoxetine HCl DR 60 MG CAP PO SCH ×2 (08:26→20:43)
[2016-08-12 12:42] VITALS: BP 106/68; PULSE 79
--- NOTE | 2016-08-12 15:38 | HHI.PYPN ---
Subjective Remarks Patient seen and examined. Chart reviewed. Case discussed with nursing staff who reports patient has been engaging in coloring instead of participating in psychotherapeutic groups. On my examination today, patient is in good spirits. Feels like psychotropic medications, in particular the addition of Lamictal, are working well. No SI or HI voiced. Denies side effects from medications. Review of Systems Other No new physical complaints Objective Alert: Yes [place]: Person, Place, Date Mood: Calm Affect: Other (fairly full and reactive) Memory Intact: Comment (remains intact) Hallucinations: Other (No AVH) Delusions: No Delusion Type: Other (no delusions) Suicidal: Ideation (no SI) Homicidal: Ideation (no HI) Insight/Judgement Fair Remarks Thought process linear. No visible rash. Labs Labs reviewed. No new labs. Bedside glucoses reviewed. 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 Plan to continue to slowly titrate Lamictal. Continue other medications and care as ordered. Justification for Cont. Inpt. Risk for decompensation Discharge Planning Patient would like to be placed in assisted living or [place] [facility] setting. Unclear whether she has skilled needs for [place] [facility] placement, but assisted living as a possibility. However, counselor informs me that the patient's resources to put towards an assisted-living are quite limited and so alternative disposition plans may need to be sought. Request HC Surrog/Guard Advoc?: No Nemesio Eddy MD Aug 12, 2016 15:37
[2016-08-12 18:49] VITALS: BP 121/58; PULSE 73; RESP 18; TEMP 97.3; O2SAT 98
[2016-08-12] MEDS: GEMFIBROZIL 600 MG TAB PO SCH (20:43)
[2016-08-12] MEDS: traZODone HCL 50 MG TAB PO SCH (20:44)
[2016-08-12] MEDS: PRAVASTATIN SOD 40 MG TAB PO SCH (20:44)
[2016-08-13] MEDS: oxyCODONE/ACETAMINOPHEN 5 MG/325 MG TAB PO PRN ×4 (02:49→21:52)
[2016-08-13 05:00] VITALS: BP 113/73; PULSE 63; RESP 18; TEMP 98.5; O2SAT 94
[2016-08-13] MEDS: PROPRANOLOL HCL 10 MG TAB PO SCH ×3 (06:15→21:22)
[2016-08-13] MEDS: lamoTRIgine 25 MG TAB PO SCH ×2 (09:06→21:22)
[2016-08-13] MEDS: GABAPENTIN 400 MG CAP PO SCH ×4 (09:06→21:21)
[2016-08-13] MEDS: DULoxetine HCl DR 60 MG CAP PO SCH ×2 (09:06→21:23)
[2016-08-13] MEDS: metFORMIN HCL 500 MG TAB PO SCH ×2 (09:07→18:00)
--- NOTE | 2016-08-13 11:16 | HHI.PYPN ---
Subjective Remarks Patient seen and examined. Chart reviewed. Case discussed with nursing staff. On my examination today, the patient reports that she feels generally good from a psychiatric standpoint but says that the "voices are real bad today. They are screaming." She says that the voices themselves are indistinct and certainly not command in nature but she is fearful that they will become command in nature as they have in the past. She denies clear stressor for worsening of reported voices. She requests titration of her Thorazine and in particular requests that the daytime dose be increased. She does not describe any urge to self injure on the unit nor does she describe any violent urge. Denies side effects from medications. Review of Systems Other No physical complaints today Objective Alert: Yes [place]: Person (O x 3) Mood: Calm Affect: Other (Remains full and reactive) Memory Intact: Comment (remains intact) Hallucinations: Auditory (Screaming), Visual (None) Delusions: No Delusion Type: Other (No evident delusional material) Suicidal: Ideation (No suicidal ideation) Homicidal: Ideation (no homicidal ideation) Insight/Judgement Fair Remarks No abnormal motor movements noted. Thought process linear. Labs Labs reviewed. No new labs. 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 Continue other psychotropics as ordered. Plan to continue to titrate Lamictal. Continue other care as ordered. Justification for Cont. Inpt. Monitoring for impairments in safety. Medication adjustments in process. Discharge Planning Pending psychiatric stabilization Request HC Surrog/Guard Advoc?: No Nemesio Eddy MD Aug 13, 2016 11:16
[2016-08-13 18:00] VITALS: BP 97/64; PULSE 81; RESP 18; TEMP 98.4; O2SAT 97
[2016-08-13] MEDS: traZODone HCL 50 MG TAB PO SCH (21:22)
[2016-08-13] MEDS: GEMFIBROZIL 600 MG TAB PO SCH (21:22)
[2016-08-13] MEDS: PRAVASTATIN SOD 40 MG TAB PO SCH (21:23)
[2016-08-14] MEDS: PROPRANOLOL HCL 10 MG TAB PO SCH ×3 (04:47→21:13)
[2016-08-14] MEDS: oxyCODONE/ACETAMINOPHEN 5 MG/325 MG TAB PO PRN ×3 (04:48→18:17)
[2016-08-14 05:18] VITALS: BP 105/62; PULSE 61; RESP 15; TEMP 97.9; O2SAT 96
[2016-08-14] MEDS: metFORMIN HCL 500 MG TAB PO SCH ×2 (08:59→18:17)
[2016-08-14] MEDS: DULoxetine HCl DR 60 MG CAP PO SCH ×2 (09:00→20:47)
[2016-08-14] MEDS: lamoTRIgine 25 MG TAB PO SCH (09:00)
[2016-08-14] MEDS: GABAPENTIN 400 MG CAP PO SCH ×4 (09:00→20:48)
--- NOTE | 2016-08-14 15:36 | HHI.PYPN ---
Subjective Remarks Patient seen and examined. Chart reviewed. Case discussed with nursing staff. On my examination today, patient reports that the voices that she was complaining of yesterday are significantly attenuated today and are tolerable. She is excited as she has spoken with the counselor about the possibility of placement and is hopeful that she may be able to enter into assisted living placement as early as the beginning of next week. She continues to feel like this would be the best environment for her. She denies side effects from medications and feels that the Lamictal is helping to stabilize her mood quite a bit. She requests a titration of her Lamictal dose. Review of Systems Other No physical complaints today Objective Alert: Yes [place]: Person (once again O x 3) Mood: Calm Affect: Euthymic Memory Intact: Comment (remains intact) Hallucinations: Auditory (significantly lessened) Delusions: No Delusion Type: Other (no delusions) Suicidal: Ideation (no SI) Homicidal: Ideation (no HI) Insight/Judgement Fair Remarks Thought processes linear. No visible rash. Labs Labs reviewed. No new labs. 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 Continue other psychotropics as ordered. Continue other medications and care as ordered. Justification for Cont. Inpt. Risk for decompensation Discharge Planning Possibly CUSTODIAL placement, possibly as early as after the weekend Request HC Surrog/Guard Advoc?: No Nemesio Eddy MD Aug 14, 2016 15:36
[2016-08-14 19:05] VITALS: BP 101/56; PULSE 72; RESP 16; TEMP 98; O2SAT 96
[2016-08-14] MEDS: traZODone HCL 50 MG TAB PO SCH (20:47)
[2016-08-14] MEDS: PRAVASTATIN SOD 40 MG TAB PO SCH (20:48)
[2016-08-14] MEDS: GEMFIBROZIL 600 MG TAB PO SCH (20:48)
[2016-08-14] MEDS ORDERED: lamoTRIgine 25 MG TAB PO SCH (21:00)
[2016-08-15 06:05] VITALS: BP 113/70; PULSE 60; RESP 17; TEMP 98; O2SAT 100
[2016-08-15] MEDS: PROPRANOLOL HCL 10 MG TAB PO SCH ×3 (06:34→21:34)
[2016-08-15] MEDS: oxyCODONE/ACETAMINOPHEN 5 MG/325 MG TAB PO PRN ×4 (06:42→21:40)
[2016-08-15] MEDS: metFORMIN HCL 500 MG TAB PO SCH ×2 (08:32→17:54)
[2016-08-15] MEDS: GABAPENTIN 400 MG CAP PO SCH ×4 (08:32→21:00)
[2016-08-15] MEDS: lamoTRIgine 25 MG TAB PO SCH ×2 (08:32→21:31)
[2016-08-15] MEDS: DULoxetine HCl DR 60 MG CAP PO SCH ×2 (08:32→21:30)
[2016-08-15 13:23] VITALS: BP 101/59; PULSE 59; TEMP 98.7
--- NOTE | 2016-08-15 15:35 | HHI.PYPN ---
Subjective Remarks Patient was seen and case discussed with nursing. Patient is pleasant and cooperative with exam. States that her mood continues to improve. She denies suicidal ideations thought or plan. She is actively looking for placement with social workers. 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 Inpt. Patient will decompensate in a less restrictive setting Request HC Surrog/Guard Advoc?: No Alex Charles DO Aug 15, 2016 15:35
[2016-08-15 18:54] VITALS: BP 101/55; PULSE 79; RESP 18; TEMP 98.1; O2SAT 96
[2016-08-15] MEDS: traZODone HCL 50 MG TAB PO SCH (21:31)
[2016-08-15] MEDS: LORazepam 1 MG TAB PO PRN (21:31)
[2016-08-15] MEDS: PRAVASTATIN SOD 40 MG TAB PO SCH (21:31)
[2016-08-15] MEDS: GEMFIBROZIL 600 MG TAB PO SCH (21:32)
[2016-08-16] MEDS: oxyCODONE/ACETAMINOPHEN 5 MG/325 MG TAB PO PRN ×4 (00:07→20:12)
[2016-08-16] MEDS: PROPRANOLOL HCL 10 MG TAB PO SCH ×3 (05:40→22:51)
[2016-08-16 06:17] VITALS: BP 106/53; PULSE 58; RESP 18; TEMP 97.4; O2SAT 92
[2016-08-16] MEDS: GABAPENTIN 400 MG CAP PO SCH ×4 (07:03→20:10)
[2016-08-16] MEDS: metFORMIN HCL 500 MG TAB PO SCH ×2 (08:34→17:47)
[2016-08-16] MEDS: lamoTRIgine 25 MG TAB PO SCH ×2 (08:34→20:09)
[2016-08-16] MEDS: DULoxetine HCl DR 60 MG CAP PO SCH ×2 (08:34→20:08)
--- NOTE | 2016-08-16 13:05 | HHI.PYPN ---
Subjective Remarks Patient was seen and case discussed with nursing. Patient is pleasant and cooperative with exam. Describes her mood today is "fantastic." Behaving well on the unit. Says she had a visit 8:30 PM from her an [facility] and is hoping to be discharged there tomorrow. Denies auditory visual hallucinations. 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 Inpt. Patient would decompensate in a less restrictive setting Request HC Surrog/Guard Advoc?: No Alex Charles DO Aug 16, 2016 13:05
[2016-08-16] MEDS: LORazepam 1 MG TAB PO PRN ×2 (15:40→20:13)
[2016-08-16 19:12] VITALS: BP 103/53; PULSE 73; RESP 18; TEMP 98.9; O2SAT 97
[2016-08-16] MEDS: PRAVASTATIN SOD 40 MG TAB PO SCH (20:08)
[2016-08-16] MEDS: GEMFIBROZIL 600 MG TAB PO SCH (20:08)
[2016-08-16] MEDS: traZODone HCL 50 MG TAB PO SCH (20:08)
[2016-08-17] MEDS: LORazepam 1 MG TAB PO PRN ×2 (02:34→21:09)
[2016-08-17 05:33] VITALS: BP 144/78; PULSE 66; RESP 15; TEMP 98.3; O2SAT 97
[2016-08-17] MEDS: PROPRANOLOL HCL 10 MG TAB PO SCH ×3 (06:09→21:09)
[2016-08-17] MEDS: lamoTRIgine 25 MG TAB PO SCH ×2 (08:46→20:22)
[2016-08-17] MEDS: metFORMIN HCL 500 MG TAB PO SCH ×2 (08:46→17:20)
[2016-08-17] MEDS: GABAPENTIN 400 MG CAP PO SCH ×4 (08:47→20:22)
[2016-08-17] MEDS: DULoxetine HCl DR 60 MG CAP PO SCH ×2 (08:47→20:21)
[2016-08-17] MEDS: oxyCODONE/ACETAMINOPHEN 5 MG/325 MG TAB PO PRN ×2 (09:55→17:27)
--- NOTE | 2016-08-17 14:08 | HHI.PYPN ---
Subjective Remarks Patient seen and examined. Chart reviewed. Case discussed with nursing staff. Per nursing staff, patient has been no behavioral problem on the unit. On my examination today, the patient is in good spirits. She was [facility] a [facility] over the weekend and apparently has secured a placement there. Counselor confirms this, and the facility will be able to accept the patient tomorrow. Mood is good. Denies any SI or HI. Auditory hallucinations are significantly attenuated and for all intents and purposes gone. No command auditory hallucinations. Denies side effects from medications. Review of Systems Other No somatic complaints today Objective Alert: Yes [place]: Person (O x 3) Mood: Happy Affect: Euthymic Memory Intact: Comment (intact on clinical examination) Hallucinations: Auditory (essentially eliminated.) Delusions: No Delusion Type: Other (none) Suicidal: Ideation (no suicidal ideation) Homicidal: Ideation (no homicidal ideation) Insight/Judgement Poor Remarks Thought process linear. Speech within normal limits for rate, tone and volume. Labs Labs reviewed. No new labs. 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 Continue other medications and care as ordered. Justification for Cont. Inpt. Risk for decompensation Discharge Planning Anticipate discharge to jail tomorrow Request HC Surrog/Guard Advoc?: No Nemesio Eddy MD Aug 17, 2016 14:08
[2016-08-17] MEDS: traZODone HCL 50 MG TAB PO SCH (20:21)
[2016-08-17] MEDS: PRAVASTATIN SOD 40 MG TAB PO SCH (20:22)
[2016-08-17] MEDS: GEMFIBROZIL 600 MG TAB PO SCH (20:22)
[2016-08-18] MEDS: PROPRANOLOL HCL 10 MG TAB PO SCH (05:36)
[2016-08-18 05:37] VITALS: BP 110/57; PULSE 59; RESP 18; TEMP 98.1; O2SAT 98
[2016-08-18] MEDS: metFORMIN HCL 500 MG TAB PO SCH (08:32)
[2016-08-18] MEDS: DULoxetine HCl DR 60 MG CAP PO SCH (08:32)
[2016-08-18] MEDS: GABAPENTIN 400 MG CAP PO SCH (08:32)
[2016-08-18] MEDS: lamoTRIgine 25 MG TAB PO SCH (08:32)
[2016-08-18] MEDS: oxyCODONE/ACETAMINOPHEN 5 MG/325 MG TAB PO PRN (08:35)
[2016-08-18 09:24] VITALS: BP 107/59; PULSE 80
[2016-08-18] MEDS ORDERED: METF500 PO (11:32)
[2016-08-18] MEDS ORDERED: CYMB60CA PO (11:32)
[2016-08-18] MEDS ORDERED: PROP10TA6 PO (11:32)
[2016-08-18] MEDS ORDERED: LAMO25 PO (11:32)
[2016-08-18] MEDS ORDERED: CHLO100T2 PO (11:32)
[2016-08-18] MEDS ORDERED: TRAZ50TA12 PO (11:32)
[2016-08-18] MEDS ORDERED: NEUR400C PO (11:32)
[2016-08-18] MEDS ORDERED: GEMF600 PO (11:32)
[2016-08-18] MEDS ORDERED: PRAV40TA PO (11:32)
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
== END 2016-08-18 12:21 | disposition home or self-care (01) | DRG 885 ==
LOC: NEDAMB 11:54 → NEDA 20:39 → H270 08-06 00:15 → H260 08-09 13:37
PROVIDERS: ADMIT Psychiatry & Neurology Psychiatry; ATTEND Psychiatry & Neurology Psychiatry
DX: F31.9 Bipolar disorder, unspecified (principal); R45.851 Suicidal ideations; E11.9 Type 2 diabetes mellitus without complications; F60.3 Borderline personality disorder; E78.1 Pure hyperglyceridemia; F41.8 Other specified anxiety disorders; G89.29 Other chronic pain; M54.9 Dorsalgia, unspecified; F43.10 Post-traumatic stress disorder, unspecified; Z87.891 Personal history of nicotine dependence
CPT/HCPCS: 80053; 80061; 80307; 80320; 80329; 81001; 82948; 83036; 84443; 84703; 85025; 99285; G0480; G0481; J1815

== ENCOUNTER 2017-05-05 12:36 | Inpatient (IN) | payer OTHER, MEDICARE ==
[~2017-05-05] VITALS: Ht 163.8 cm; Wt 69.7 kg
[~2017-05-05 12:36] MED LIST changes: -CHLO100 PO; +CHLO100T2 PO; -CHLO50 PO; +CYMB60CA PO; -DULO1CAP2 PO; -GABA800T PO; +GEMF600 PO; -LAMO100 PO; +LAMO25 PO; +METF500 PO; +NEUR400C PO; +PERC5TAB12 PO; +PRAV40TA PO; +PROP10TA6 PO; -TEGR200T PO; +TRAZ50TA12 PO
[2017-05-05 14:37] VITALS: BP 99/63; PULSE 77; RESP 15; TEMP 97.7; O2SAT 96
--- NOTE | 2017-05-05 15:54 | PD ---
HPI Chief Complaint: Psychiatric Symptoms Time Seen by Provider: 15:51 Travel History International Travel<30 days: No Contact w/Intl Traveler<30days: No Traveled to known affect area: No History of Present Illness HPI 52-year-old female with history of diabetes, bipolar schizoaffective disorder, depression, presents to emergency department for evaluation following a possible overdose. Patient states that she has been increasingly depressed. She tends 5 gabapentin and a handful of Benadryl today. She states currently she feels "fine." She tells me she feels a little tired. Denies any pain. States that this was not a suicide attempt. She has not been nauseous nor has she vomited. Denies illicit drug use. Denies alcohol consumption. She has no other symptoms to report. PFSH Past Medical History Arthritis: Yes Bipolar Disorder: Yes (with rapid cycling) Anxiety: Yes Depression: Yes Cancer: No Cardiovascular Problems: No Diabetes: Yes Genitourinary: No Headaches: No Musculoskeletal: Yes Neurologic: Yes Psychiatric: Yes Reproductive: No Respiratory: Yes (RECENT CONGESTION/FEVER) Seizures: No Past Surgical History Section: Yes (x4) Hysterectomy: Yes Other Surgery: Yes Social History Alcohol Use: Yes Tobacco Use: No Substance Use: No Allergies-Medications (Allergen,Severity, Reaction): Coded Allergies: divalproex sodium (Unverified Allergy, Severe, Anaphylaxis, 05/05/17) latex (Unverified Allergy, Severe, Rash, 05/05/17) lithium (Unverified Allergy, Severe, Anaphylaxis, 05/05/17) aspirin (Unverified Allergy, Unknown, 05/05/17) diclofenac (Unverified Allergy, Unknown, 05/05/17) etodolac (Unverified Allergy, Unknown, 05/05/17) flurbiprofen (Unverified Allergy, Unknown, 05/05/17) ibuprofen (Unverified Allergy, Unknown, 05/05/17) indomethacin (Unverified Allergy, Unknown, 05/05/17) ketoprofen (Unverified Allergy, Unknown, 05/05/17) ketorolac (Unverified Allergy, Unknown, 05/05/17) naproxen (Unverified Allergy, Unknown, 05/05/17) oxaprozin (Unverified Allergy, Unknown, 05/05/17) Reported Meds & Prescriptions Reported Meds & Active Scripts Active Lamictal (Lamotrigine) 25 Mg Tab 25 Mg PO DIRECTED 15 Days 25mg PO qAM and 50mg PO qHS. Neurontin (Gabapentin) 400 Mg Cap 800 Mg PO QID [address] (Duloxetine HCl) 60 Mg Capdr 60 Mg PO BID 15 Days Reported Chlorpromazine (Chlorpromazine HCl) 200 Mg Tab 150 Mg PO BID PRN Vistaril (Hydroxyzine Pamoate) 25 Mg Cap 50 Mg PO HS Percocet (Oxycodone-Acetaminophen) 5-325 mg Tab 1 Tab PO Q6H PRN Review of Systems Except as stated in HPI: all other systems reviewed are Neg Physical Exam Narrative GENERAL: Well-nourished female patient, sitting up in chair, in no acute distress. SKIN: Focused skin assessment warm/dry. HEAD: Atraumatic. Normocephalic. EYES: Pupils equal and round. No scleral icterus. No injection or drainage. ENT: No nasal bleeding or discharge. Mucous membranes pink and moist. NECK: Trachea midline. No JVD. CARDIOVASCULAR: Regular rate and rhythm. No murmur appreciated. RESPIRATORY: No accessory muscle use. Clear to auscultation. Breath sounds equal bilaterally. GASTROINTESTINAL: Abdomen soft, non-tender, nondistended. Hepatic and splenic margins not palpable. MUSCULOSKELETAL: No obvious deformities. No clubbing. No cyanosis. No edema. NEUROLOGICAL: Awake and alert. No obvious cranial nerve deficits. Motor grossly within normal limits. Normal speech. Data Data Last Documented VS Vital Signs Date Time Temp Pulse Resp B/P (MAP) Pulse Ox O2 Delivery O2 Flow Rate FiO2 05/05/17 21:02 77 15 160/74 (102) 97 Room Air 05/05/17 14:37 97.7 Orders Orders Complete Blood Count With Diff (05/05/17 15:09) Comprehensive Metabolic Panel (05/05/17 15:09) Urinalysis - C+S If Indicated (05/05/17 15:09) Electrocardiogram (05/05/17 15:09) Iv Access Insert/Monitor (05/05/17 15:09) Psych Screen (05/05/17 15:09) Drug Screen, Random Urine (05/05/17 15:09) Alcohol (Ethanol) (05/05/17 15:09) Salicylates (Aspirin) (05/05/17 15:09) Tylenol (Acetaminophen) (05/05/17 15:09) Call Poison Control (05/05/17 15:54) Electrocardiogram (05/05/17 ) Labs Laboratory Tests Test 05/05/17 17:33 05/05/17 17:54 05/05/17 19:50 White Blood Count 8.9 TH/MM3 Red Blood Count 4.36 MIL/MM3 Hemoglobin 13.2 GM/DL Hematocrit 38.3 % Mean Corpuscular Volume 88.0 FL Mean Corpuscular Hemoglobin 30.3 PG Mean Corpuscular Hemoglobin Concent 34.4 % Red Cell Distribution Width 14.8 % Platelet Count 266 TH/MM3 Mean Platelet Volume 7.4 FL Neutrophils (%) (Auto) 61.1 % Lymphocytes (%) (Auto) 31.8 % Monocytes (%) (Auto) 5.4 % Eosinophils (%) (Auto) 1.5 % Basophils (%) (Auto) 0.2 % Neutrophils # (Auto) 5.5 TH/MM3 Lymphocytes # (Auto) 2.8 TH/MM3 Monocytes # (Auto) 0.5 TH/MM3 Eosinophils # (Auto) 0.1 TH/MM3 Basophils # (Auto) 0.0 TH/MM3 CBC Comment DIFF FINAL Differential Comment Blood Urea Nitrogen 11 MG/DL Creatinine 0.81 MG/DL Random Glucose 80 MG/DL Total Protein 7.8 GM/DL Albumin 3.7 GM/DL Calcium Level 8.9 MG/DL Alkaline Phosphatase 92 U/L Aspartate Amino Transf (AST/SGOT) 52 U/L Alanine Aminotransferase (ALT/SGPT) 30 U/L Total Bilirubin 0.4 MG/DL Sodium Level 138 MEQ/L Potassium Level 4.7 MEQ/L Chloride Level 106 MEQ/L Carbon Dioxide Level 25.1 MEQ/L Anion Gap 7 MEQ/L Estimat Glomerular Filtration Rate 74 ML/MIN Acetaminophen Level LESS THAN 2.0 MCG/ML Ethyl Alcohol Level LESS THAN 3 MG/DL Salicylates Level 5.4 MG/DL Urine Color LIGHT-YELLOW Urine Turbidity CLEAR Urine pH 7.0 Urine Specific [place] 1.012 Urine Protein NEG mg/dL Urine Glucose (UA) NEG mg/dL Urine Ketones NEG mg/dL Urine Occult Blood NEG Urine Nitrite NEG Urine Bilirubin NEG Urine Urobilinogen LESS THAN 2.0 MG/DL Urine Leukocyte Esterase NEG Urine RBC LESS THAN 1 /hpf Urine WBC 1 /hpf Urine Squamous Epithelial Cells 1 /hpf Urine Bacteria RARE /hpf Microscopic Urinalysis Comment CULT NOT INDICATED Urine Opiates Screen NEG Urine Barbiturates Screen NEG Urine Amphetamines Screen NEG Urine Benzodiazepines Screen NEG Urine Cocaine Screen NEG Urine Cannabinoids Screen NEG MDM Medical Decision Making Medical Screen Exam Complete: Yes Emergency Medical Condition: Yes Medical Record Reviewed: Yes Differential Diagnosis Overdose intentional versus accidental versus mood disorder versus personality disorder versus adjustment reaction disorder Narrative Course 52-year-old female presents to emergency department for evaluation a Christiansen act for possible overdose. Patient does report taking 5 gabapentin and a handful of Benadryl. Workup as initiated in the triage ambulance hallway. EKG is complete in order for poison control was placed. Laboratory Tests Test 05/05/17 17:33 05/05/17 17:54 05/05/17 19:50 White Blood Count 8.9 TH/MM3 Red Blood Count 4.36 MIL/MM3 Hemoglobin 13.2 GM/DL Hematocrit 38.3 % Mean Corpuscular Volume 88.0 FL Mean Corpuscular Hemoglobin 30.3 PG Mean Corpuscular Hemoglobin Concent 34.4 % Red Cell Distribution Width 14.8 % Platelet Count 266 TH/MM3 Mean Platelet Volume 7.4 FL Neutrophils (%) (Auto) 61.1 % Lymphocytes (%) (Auto) 31.8 % Monocytes (%) (Auto) 5.4 % Eosinophils (%) (Auto) 1.5 % Basophils (%) (Auto) 0.2 % Neutrophils # (Auto) 5.5 TH/MM3 Lymphocytes # (Auto) 2.8 TH/MM3 Monocytes # (Auto) 0.5 TH/MM3 Eosinophils # (Auto) 0.1 TH/MM3 Basophils # (Auto) 0.0 TH/MM3 CBC Comment DIFF FINAL Differential Comment Blood Urea Nitrogen 11 MG/DL Creatinine 0.81 MG/DL Random Glucose 80 MG/DL Total Protein 7.8 GM/DL Albumin 3.7 GM/DL Calcium Level 8.9 MG/DL Alkaline Phosphatase 92 U/L Aspartate Amino Transf (AST/SGOT) 52 U/L Alanine Aminotransferase (ALT/SGPT) 30 U/L Total Bilirubin 0.4 MG/DL Sodium Level 138 MEQ/L Potassium Level 4.7 MEQ/L Chloride Level 106 MEQ/L Carbon Dioxide Level 25.1 MEQ/L Anion Gap 7 MEQ/L Estimat Glomerular Filtration Rate 74 ML/MIN Acetaminophen Level LESS THAN 2.0 MCG/ML Ethyl Alcohol Level LESS THAN 3 MG/DL Salicylates Level 5.4 MG/DL Urine Color LIGHT-YELLOW Urine Turbidity CLEAR Urine pH 7.0 Urine Specific [place] 1.012 Urine Protein NEG mg/dL Urine Glucose (UA) NEG mg/dL Urine Ketones NEG mg/dL Urine Occult Blood NEG Urine Nitrite NEG Urine Bilirubin NEG Urine Urobilinogen LESS THAN 2.0 MG/DL Urine Leukocyte Esterase NEG Urine RBC LESS THAN 1 /hpf Urine WBC 1 /hpf Urine Squamous Epithelial Cells 1 /hpf Urine Bacteria RARE /hpf Microscopic Urinalysis Comment CULT NOT INDICATED Urine Opiates Screen NEG Urine Barbiturates Screen NEG Urine Amphetamines Screen NEG Urine Benzodiazepines Screen NEG Urine Cocaine Screen NEG Urine Cannabinoids Screen NEG Patient's initial EKGs without acute changes. After discussion with poison control, they request repeat EKG in 4 hours. Patient has remained stable. Lab work is without acute concern. She is medically cleared to undergo psychiatric screening for further evaluation and disposition. Diagnosis Primary Impression: Overdose Qualified Codes: T50.902A - Poisoning by unspecified drugs, medicaments and biological substances, intentional self-harm, initial encounter Additional Impression: Bipolar disorder Qualified Codes: F31.32 - Bipolar disorder, current episode depressed, moderate Condition: Stable Deanne Trammell May 05, 2017 15:54
[2017-05-05] MEDS ORDERED: CHLO200T5 PO (16:47)
[2017-05-05] MEDS ORDERED: VIST25CA PO (16:47)
[2017-05-05 17:00] VITALS: BP 132/84; PULSE 80; RESP 19; O2SAT 98
[2017-05-05 17:58] LABS: AUTOMATED NEUTROPHIL # 5.5 TH/MM3 (1.8-7.7); BASOPHIL % 0.2 % (0.0-2.0); EOSINOPHIL # 0.1 TH/MM3 (0-0.4); EOSINOPHIL % 1.5 % (0.0-4.0); HEMATOCRIT 38.3 % (35.0-46.0); HEMO FLAGS DIFF FINAL; LYMPH % 31.8 % (9.0-44.0); LYMPHOCYTE # 2.8 TH/MM3 (1.0-4.8); MEAN CORPUSCULAR HEMOGLOBIN 30.3 PG (27.0-34.0); MEAN CORPUSCULAR HGB CONC 34.4 % (32.0-36.0); MONO % 5.4 % (0.0-8.0); NEUT % 61.1 % (16.0-70.0); PLATELET COUNT 266 TH/MM3 (150-450); RED BLOOD COUNT 4.36 MIL/MM3 (4.00-5.30); RED CELL DISTRIBUTION WIDTH 14.8 % (11.6-17.2); WHITE BLOOD COUNT 8.9 TH/MM3 (4.0-11.0)
[2017-05-05 18:13] LABS: ALT (GPT) 30 U/L (10-53); ANION GAP 7 MEQ/L (5-15); AST (GOT) 52 U/L (15-37); BICARBONATE 25.1 MEQ/L (21.0-32.0); BLOOD UREA NITROGEN 11 MG/DL (7-18); CHLORIDE 106 MEQ/L (98-107); GLOMERULAR FILTRATION RATE 74 ML/MIN (>89); SODIUM (NA) 138 MEQ/L (136-145)
[2017-05-05 18:14] LABS: ALKALINE PHOSPHATASE 92 U/L (45-117); POTASSIUM 4.7 MEQ/L (3.5-5.1); TOTAL BILIRUBIN ADULT 0.4 MG/DL (0.2-1.0)
[2017-05-05 18:15] LABS: ALCOHOL LESS THAN 3 MG/DL (0-5)
[2017-05-05 18:25] LABS: ACETAMINOPHEN LESS THAN 2.0 MCG/ML (10.0-30.0)
[2017-05-05 20:16] LABS: BACTERIA, URINE RARE /hpf; BLOOD, URINE NEG (NEG); COMMENT (UR) CULT NOT INDICATED; CULTURE IF INDICATED CULT NOT INDICATED; GLUCOSE,URINE NEG (NEG); KETONE, URINE NEG (NEG); NITRITE,URINE NEG (NEG); SQUAMOUS EPITHELIAL CELL URINE 1 /hpf (0-5); URINE COLOR LIGHT-YELLOW (YELLW/STRAW)
[2017-05-05 21:02] VITALS: BP 160/74; PULSE 77; RESP 15; O2SAT 97
[2017-05-06 02:00] VITALS: BP 127/72; PULSE 70; RESP 18; O2SAT 96
[2017-05-06] MEDS ORDERED: ALUMINUM/MAGNESIUM/SIMETH 30 ML CUP PO PRN (05:00)
[2017-05-06] MEDS ORDERED: MAGNESIUM HYDROXIDE SUSP 30 ML CUP PO PRN (05:00)
[2017-05-06] MEDS ORDERED: oxyCODONE/ACETAMINOPHEN 5 MG/325 MG TAB PO PRN (05:00)
[2017-05-06] MEDS ORDERED: LORazepam 1 MG TAB PO PRN ×2 (05:00→11:00)
[2017-05-06] MEDS ORDERED: LORazepam 2 MG/ML VIAL IM PRN ×2 (05:00→11:00)
[2017-05-06] MEDS ORDERED: ACETAMINOPHEN 325 MG TAB PO PRN (05:00)
[2017-05-06 05:37] VITALS: BP 111/63; PULSE 73; RESP 16; TEMP 98; O2SAT 96
[2017-05-06] MEDS ORDERED: DEXTROSE 50% IN WATER 50 ML VIAL(D50) IV PUSH PRN (07:15)
[2017-05-06] MEDS ORDERED: GLUCAGON 1 MG/ML VIAL OTHER PRN (07:15)
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
[2017-05-06] MEDS: HIGH DOSE INSULIN NOVOLOG SUPPLEMENTAL SCALE SQ SCH ×4 (08:00→20:17)
[2017-05-06] MEDS: DULoxetine HCl DR 60 MG CAP PO SCH ×2 (08:21→20:17)
[2017-05-06] MEDS: NICOTINE 21 MG/24 HR PATCH T-DERMAL SCH (08:21)
[2017-05-06] MEDS ORDERED: GABAPENTIN 400 MG CAP PO SCH (09:00)
--- NOTE | 2017-05-06 11:28 | EKG ---
Date Performed: 05/05/2017 Time Performed: 16:36:29 PTAGE: 52 years EKG: Sinus rhythm NORMAL ECG Compared to prior tracing no significant change PREVIOUS TRACING : 01/14/2016 18.42 DOCTOR: Rasheed Yuen Interpretating Date/Time 05/06/2017 11:26:33
--- NOTE | 2017-05-06 11:28 | EKG ---
Date Performed: 05/05/2017 Time Performed: 19:31:58 PTAGE: 52 years EKG: Sinus rhythm NORMAL ECG Compared to prior tracing no significant change PREVIOUS TRACING : 05/05/2017 16.36 DOCTOR: Rasheed Yuen Interpretating Date/Time 05/06/2017 11:26:40
[2017-05-06] MEDS: GABAPENTIN 400 MG CAP PO SCH ×3 (13:07→20:17)
--- NOTE | 2017-05-06 13:08 | PD.CONS ---
[facility] By [facility] Physician No Primary Care Physician Diagnoses: History of Present Illness Mrs. Torres is a 52-year-old female. She is admitted secondary to schizoaffective disorder decompensation. I'm consulted to review her medical conditions which include diabetes mellitus type 2, osteoarthritis, GERD, and chronic back pain. She says she takes Percocet at home. Percocet is not in favor treatment and psychiatric setting. She is allergic to NSAIDs. No other complaints. Review of Systems Constitutional: DENIES: Diaphoretic episodes, Fatigue, Fever, Chills, Change in appetite Eyes: DENIES: Blurred vision, Diplopia, Eye inflammation, Eye pain Ears, nose, mouth, throat: DENIES: Tinnitus, Hearing loss, Vertigo Respiratory: DENIES: Apneas, Cough, Wheezing, Shortness of breath Cardiovascular: DENIES: Chest pain, Palpitations, Syncope Gastrointestinal: DENIES: Abdominal pain, Black stools, Bloody stools Musculoskeletal: DENIES: Joint pain, Muscle aches, Stiffness Integumentary: DENIES: Abnormal pigmentation, Pruritus, Rash Hematologic/lymphatic: DENIES: Bruising, Lymphadenopathy Immunologic/allergic: DENIES: Eczema, Urticaria Neurologic: DENIES: Abnormal gait, Headache, Paresthesias Past Family Social History Allergies: Coded Allergies: divalproex sodium (Unverified Allergy, Severe, Anaphylaxis, 05/05/17) latex (Unverified Allergy, Severe, Rash, 05/05/17) lithium (Unverified Allergy, Severe, Anaphylaxis, 05/05/17) aspirin (Unverified Allergy, Unknown, 05/05/17) diclofenac (Unverified Allergy, Unknown, 05/05/17) etodolac (Unverified Allergy, Unknown, 05/05/17) flurbiprofen (Unverified Allergy, Unknown, 05/05/17) ibuprofen (Unverified Allergy, Unknown, 05/05/17) indomethacin (Unverified Allergy, Unknown, 05/05/17) ketoprofen (Unverified Allergy, Unknown, 05/05/17) ketorolac (Unverified Allergy, Unknown, 05/05/17) naproxen (Unverified Allergy, Unknown, 05/05/17) oxaprozin (Unverified Allergy, Unknown, 05/05/17) Past Medical History Diabetes mellitus type 2 Osteoarthritis Recent cough (resolved) Gastroesophageal reflux disease Past Surgical History (4) Hysterectomy Reported Medications Reported Meds & Active Scripts Active Lamictal (Lamotrigine) 25 Mg Tab 25 Mg PO DIRECTED 15 Days 25mg PO qAM and 50mg PO qHS. Neurontin (Gabapentin) 400 Mg Cap 800 Mg PO QID [address] (Duloxetine HCl) 60 Mg Capdr 60 Mg PO BID 15 Days Reported Chlorpromazine (Chlorpromazine HCl) 200 Mg Tab 150 Mg PO BID PRN Vistaril (Hydroxyzine Pamoate) 25 Mg Cap 50 Mg PO HS Percocet (Oxycodone-Acetaminophen) 5-325 mg Tab 1 Tab PO Q6H PRN Active Ordered Medications Administered Medications Medications (Trade) Dose Ordered Sig/Artemio Route PRN Reason Start Time Stop Time Status Last Admin Dose Admin Nicotine (Habitrol 21 Mg Patch.24 Hr) 1 patch DAILY T-DERMAL 05/06/17 09:00 05/06/17 08:21 Duloxetine HCl (Cymbalta Dr) 60 mg BID PO 05/06/17 09:00 05/06/17 08:21 Family History Bipolar disorder and brain aneurysm and father Lupus and mother and lupus in all daughters Social History Occasional alcohol use No illicit drug abuse No smoking Physical Exam Vital Signs Vital Signs Date Time Temp Pulse Resp B/P (MAP) Pulse Ox O2 Delivery O2 Flow Rate FiO2 05/06/17 05:37 98.0 73 16 111/63 (79) 96 05/06/17 05:20 05/06/17 02:00 70 18 127/72 (90) 96 Room Air 05/05/17 21:02 77 15 160/74 (102) 97 Room Air 05/05/17 17:00 80 19 132/84 (100) 98 Room Air 05/05/17 14:37 97.7 77 15 99/63 (75) 96 Room Air Physical Exam GENERAL: NAD, A&Ox3 HEAD: Normocephalic. NECK: Supple, trachea midline. No lymphadenopathy. EYES: No scleral icterus. No injection or drainage. CARDIOVASCULAR: Regular rate and rhythm without murmurs, gallops, or rubs. RESPIRATORY: Breath sounds equal bilaterally. No accessory muscle use. GASTROINTESTINAL: Abdomen soft, non-tender, nondistended. MUSCULOSKELETAL: No cyanosis, or edema. SKIN: Warm and dry. NEURO: No focal neurological deficitis. Laboratory Laboratory Tests Test 05/05/17 17:33 05/05/17 17:54 05/05/17 19:50 White Blood Count 8.9 Red Blood Count 4.36 Hemoglobin 13.2 Hematocrit 38.3 Mean Corpuscular Volume 88.0 Mean Corpuscular Hemoglobin 30.3 Mean Corpuscular Hemoglobin Concent 34.4 Red Cell Distribution Width 14.8 Platelet Count 266 Mean Platelet Volume 7.4 Neutrophils (%) (Auto) 61.1 Lymphocytes (%) (Auto) 31.8 Monocytes (%) (Auto) 5.4 Eosinophils (%) (Auto) 1.5 Basophils (%) (Auto) 0.2 Neutrophils # (Auto) 5.5 Lymphocytes # (Auto) 2.8 Monocytes # (Auto) 0.5 Eosinophils # (Auto) 0.1 Basophils # (Auto) 0.0 CBC Comment DIFF FINAL Differential Comment Blood Urea Nitrogen 11 Creatinine 0.81 Random Glucose 80 Total Protein 7.8 Albumin 3.7 Calcium Level 8.9 Alkaline Phosphatase 92 Aspartate Amino Transf (AST/SGOT) 52 Alanine Aminotransferase (ALT/SGPT) 30 Total Bilirubin 0.4 Sodium Level 138 Potassium Level 4.7 Chloride Level 106 Carbon Dioxide Level 25.1 Anion Gap 7 Estimat Glomerular Filtration Rate 74 Acetaminophen Level LESS THAN 2.0 Ethyl Alcohol Level LESS THAN 3 Salicylates Level 5.4 Urine Color LIGHT-YELLOW Urine Turbidity CLEAR Urine pH 7.0 Urine Specific [place] 1.012 Urine Protein NEG Urine Glucose (UA) NEG Urine Ketones NEG Urine Occult Blood NEG Urine Nitrite NEG Urine Bilirubin NEG Urine Urobilinogen LESS THAN 2.0 Urine Leukocyte Esterase NEG Urine RBC LESS THAN 1 Urine WBC 1 Urine Squamous Epithelial Cells 1 Urine Bacteria RARE Microscopic Urinalysis Comment CULT NOT INDICATED Urine Opiates Screen NEG Urine Barbiturates Screen NEG Urine Amphetamines Screen NEG Urine Benzodiazepines Screen NEG Urine Cocaine Screen NEG Urine Cannabinoids Screen NEG Result Diagram: 05/05/17173205/05/171732 Assessment and Plan Problem List: (1) Atypical bipolar disorder ICD Code: F31.89 - Other bipolar disorder Status: Acute (2) Bipolar disorder ICD Code: F31.9 - Bipolar disorder, unspecified Status: Acute (3) Borderline personality disorder ICD Code: F60.3 - Borderline personality disorder (4) Adjustment disorder with mixed disturbance of emotions and conduct ICD Code: F43.25 - Adjustment disorder with mixed disturbance of emotions and conduct Assessment and Plan Assessment and plan 52-year-old female admitted secondary to schizoaffective disorder decompensation Diabetes mellitus type 2 Appears well controlled at baseline Order hemoglobin A1c Resume Januvia No need for insulin sliding scale in the setting Osteoarthritis Chronic back pain History of back trauma Tramadol as needed GERD Protonix Schizoaffective disorder Management per psychiatry Problem Qualifiers (1) Bipolar disorder: Qualified Codes: F31.32 - Bipolar disorder, current episode depressed, moderate Elvis Limon MD May 06, 2017 13:08
[2017-05-06] MEDS: traMADol HCL 50 MG TAB PO PRN (15:51)
[2017-05-06 18:01] VITALS: BP 99/56; PULSE 74; RESP 18; TEMP 98; O2SAT 100
[2017-05-06] MEDS ORDERED: REMOVE OLD NICOTINE PATCH T-DERMAL SCH (21:00)
[2017-05-06] MEDS ORDERED: CITALOPRAM HYDROBROMIDE 20 MG TAB PO SCH (21:00)
[2017-05-07] MEDS: traMADol HCL 50 MG TAB PO PRN ×2 (01:42→11:28)
[2017-05-07 05:49] VITALS: BP 105/56; PULSE 82; RESP 18; TEMP 98.3; O2SAT 99
[2017-05-07] MEDS: DULoxetine HCl DR 60 MG CAP PO SCH (08:33)
[2017-05-07] MEDS: GABAPENTIN 400 MG CAP PO SCH ×2 (08:33→12:26)
[2017-05-07] MEDS: NICOTINE 21 MG/24 HR PATCH T-DERMAL SCH (08:34)
[2017-05-07] MEDS ORDERED: PANTOPRAZOLE SOD 20 MG DELAYED RELEASE TAB PO SCH (09:00)
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
[2017-05-07] MEDS ORDERED: Chlorpromazine PO (10:51)
[2017-05-07] MEDS ORDERED: LAMO100 PO (10:51)
[2017-05-07] MEDS ORDERED: CELE20TA PO (10:51)
[2017-05-07] MEDS ORDERED: SITA50 PO (10:51)
[2017-05-07] MEDS ORDERED: lamoTRIgine 100 MG TAB PO SCH (11:00)
== END 2017-05-07 14:18 | disposition left against medical advice (07) | DRG 882 ==
LOC: NEPD 12:36 → NEDA 05-06 03:11 → H260 05-06 05:26 → H270 05-06 11:40
PROVIDERS: ADMIT Psychiatry & Neurology Psychiatry; ATTEND Psychiatry & Neurology Psychiatry
DX: F43.25 Adjustment disorder with mixed disturbance of emotions and conduct (principal); R45.851 Suicidal ideations; F25.9 Schizoaffective disorder, unspecified; F60.3 Borderline personality disorder; F12.10 Cannabis abuse, uncomplicated; F43.10 Post-traumatic stress disorder, unspecified; T42.6X2A Poisoning by other antiepileptic and sedative-hypnotic drugs, intentional self-harm, initial encounter; T45.0X2A Poisoning by antiallergic and antiemetic drugs, intentional self-harm, initial encounter; Y92.9 Unspecified place or not applicable; G47.10 Hypersomnia, unspecified; Z91.5 Personal history of self-harm; Z81.8 Family history of other mental and behavioral disorders; M19.90 Unspecified osteoarthritis, unspecified site; K21.9 Gastro-esophageal reflux disease without esophagitis; G89.29 Other chronic pain; E11.9 Type 2 diabetes mellitus without complications; M54.9 Dorsalgia, unspecified
CPT/HCPCS: 80053; 80307; 81001; 82948; 85025; 93005

== ENCOUNTER 2018-01-04 16:19 | Observation (INO) | payer MEDICAID, MEDICARE, OTHER ==
[~2018-01-04] VITALS: Ht 162.6 cm; Wt 67.0 kg
[~2018-01-04 16:19] MED LIST changes: +AMBI5TAB PO; +CELE20TA PO; -CHLO100T2 PO; +COMMODE 3-IN-11 MIS; +Chlorpromazine PO; +Dextrose 50% In Wat (Vial) Inj IV PUSH; +ENDO10TA8 PO; +ENOX40IN SQ; +FAMO20TA2 PO; -GEMF600 PO; +Glucagon Inj OTHER; +LAMO100 PO; -LAMO25 PO; +LIDO1ADH4 T-DERMAL; -METF500 PO; +METH500T3 PO; -PERC5TAB12 PO; +PERI PO; -PRAV40TA PO; -PROP10TA6 PO; +SITA50 PO; +THERTAB15 PO; -TRAZ50TA12 PO; +VIST25CA PO; +WALKER WHEELS/F1 MIS; +chlorproMAZINE PO
[2018-01-04 16:25] VITALS: BP 120/66; PULSE 81; RESP 19; TEMP 98.2; O2SAT 98
[2018-01-04] MEDS ORDERED: SODIUM CHLORIDE 0.9% FLUSH 10 ML FLUSH IVF PRN (17:00)
[2018-01-04] MEDS ORDERED: PROMETHAZINE INJ 25 MG/ML VIAL IM ONE (17:00)
[2018-01-04 17:28] LABS: AUTOMATED NEUTROPHIL # 7.2 TH/MM3 (1.8-7.7); BASOPHIL % 0.4 % (0.0-2.0); EOSINOPHIL # 0.1 TH/MM3 (0-0.4); EOSINOPHIL % 0.6 % (0.0-4.0); HEMATOCRIT 36.1 % (35.0-46.0); HEMOGLOBIN 12.3 GM/DL (11.6-15.3); LYMPH % 22.6 % (9.0-44.0); LYMPHOCYTE # 2.3 TH/MM3 (1.0-4.8); MEAN CELL VOLUME 90.6 FL (80.0-100.0); MEAN CORPUSCULAR HEMOGLOBIN 30.9 PG (27.0-34.0); MEAN CORPUSCULAR HGB CONC 34.1 % (32.0-36.0); MEAN PLATELET VOLUME 7.3 FL (7.0-11.0); MONO % 5.1 % (0.0-8.0); MONOCYTE # 0.5 TH/MM3 (0-0.9); NEUT % 71.3 % (16.0-70.0); PLATELET COUNT 312 TH/MM3 (150-450); RED BLOOD COUNT 3.98 MIL/MM3 (4.00-5.30); RED CELL DISTRIBUTION WIDTH 13.5 % (11.6-17.2)
[2018-01-04 17:51] LABS: ALBUMIN 3.5 GM/DL (3.4-5.0); ALT (GPT) 29 U/L (10-53); BLOOD UREA NITROGEN 12 MG/DL (7-18); CALCIUM 8.7 MG/DL (8.5-10.1); CHLORIDE 110 MEQ/L (98-107); CREATININE 1.11 MG/DL (0.50-1.00); GLOMERULAR FILTRATION RATE 51 ML/MIN (>89); GLUCOSE,RANDOM 144 MG/DL (74-106); SODIUM (NA) 141 MEQ/L (136-145)
[2018-01-04 17:57] LABS: ALKALINE PHOSPHATASE 197 U/L (45-117); TOTAL BILIRUBIN ADULT 0.2 MG/DL (0.2-1.0); TOTAL PROTEIN 7.1 GM/DL (6.4-8.2)
--- NOTE | 2018-01-04 18:07 | PD ---
HPI Chief Complaint: OD/ Ingestion Time Seen by Provider: 16:51 Travel History International Travel<30 days: No Contact w/Intl Traveler<30days: No Traveled to known affect area: No History of Present Illness HPI Patient is a 52-year-old female presenting to the emergency department for psychiatric evaluation under Christiansen act after attempted overdose. Patient states she took 8 100 mg tablets of Lamictal in attempt to end her life. She reports feeling increasingly depressed because she is currently undomiciled and living on a friend's back porch. Patient reports a history of bipolar disorder. She is currently only on Lamictal for her symptoms. She is following a therapist as outpatient. She denies any current hallucinations but states she has had them in the past. She has no physical complaints at this time other than nausea. She denies any chest pain, shortness of breath, headache, abdominal pain. PFSH Past Medical History Arthritis: Yes Asthma: Yes Bipolar Disorder: Yes Anxiety: Yes Depression: Yes Cardiovascular Problems: Yes Chest Pain: Yes COPD: Yes Diabetes: Yes Endocrine: Yes GERD: Yes (gerd) Genitourinary: Yes Kidney Stones: Yes Musculoskeletal: Yes Neurologic: Yes Psychiatric: Yes (psychosis, paranoia) Reproductive: No Respiratory: Yes ("punctured lung") Migraines: Yes Radiation Therapy: No Renal Failure: No Seizures: Yes Sickle Cell Disease: No Sleep Apnea: Yes Thyroid Disease: No Ulcer: No Tetanus Vaccination: > 5 Years ?: Not Past Surgical History Abdominal Surgery: Yes (see below) AICD: No Arteriovenous Shunt: No Cardiac Surgery: No Section: Yes (x4) Ear Surgery: No Endocrine Surgery: No Eye Surgery: No Genitourinary Surgery: No Gynecologic Surgery: Yes (Hysterectomy x 2) Hysterectomy: Yes Insulin Pump: No Joint Replacement: No (jagruti in left leg) Oral Surgery: No Pacemaker: No Thoracic Surgery: No Other Surgery: Yes Family History Family Myocardial Infarction: Yes Social History Alcohol Use: No Tobacco Use: Yes (1ppd ) Substance Use: Yes (marijuana) Allergies-Medications (Allergen,Severity, Reaction): Coded Allergies: divalproex sodium (Verified Allergy, Severe, Anaphylaxis, 01/04/18) latex (Verified Allergy, Severe, Rash, 01/04/18) lithium (Verified Allergy, Severe, Anaphylaxis, 01/04/18) NSAIDS (Non-Steroidal Anti-Inflamma (Verified Allergy, Unknown, 01/04/18) aspirin (Verified Allergy, Unknown, 01/04/18) diclofenac (Verified Allergy, Unknown, 01/04/18) etodolac (Verified Allergy, Unknown, 01/04/18) flurbiprofen (Verified Allergy, Unknown, 01/04/18) ibuprofen (Verified Allergy, Unknown, 01/04/18) indomethacin (Verified Allergy, Unknown, 01/04/18) ketoprofen (Verified Allergy, Unknown, 01/04/18) ketorolac (Verified Allergy, Unknown, 01/04/18) naproxen (Verified Allergy, Unknown, 01/04/18) oxaprozin (Verified Allergy, Unknown, 01/04/18) Reported Meds & Prescriptions Reported Meds & Active Scripts Active Thera Tablet (Multivitamin with Folic Acid) 400 Mcg Tablet 1 Tab PO DAILY Celexa (Citalopram Hydrobromide) 20 Mg Tab 10 Mg PO HS 10 Days Lamictal (Lamotrigine) 100 Mg Tab 100 Mg PO DAILY 1 Days Order is to update med rec only. Pt has supply at home. Neurontin (Gabapentin) 400 Mg Cap 800 Mg PO QID [address] (Duloxetine HCl) 60 Mg Capdr 60 Mg PO BID 15 Days Review of Systems Except as stated in HPI: all other systems reviewed are Neg Gastrointestinal: Positive: Nausea Psychiatric: Positive: Depression, Suicidal Ideations, Mood Disorder Physical Exam Narrative GENERAL: Well-developed, well-nourished, alert female. Presenting in no acute distress. SKIN: Warm and dry. HEAD: Atraumatic. Normocephalic. EYES: Pupils equal and round. No scleral icterus. No injection or drainage. ENT: No nasal bleeding or discharge. Mucous membranes pink and moist. NECK: Trachea midline. No JVD. CARDIOVASCULAR: Regular rate and rhythm. RESPIRATORY: No accessory muscle use. Clear to auscultation. Breath sounds equal bilaterally. GASTROINTESTINAL: Abdomen soft, non-tender, nondistended. Hepatic and splenic margins not palpable. MUSCULOSKELETAL: Extremities without clubbing, cyanosis, or edema. No obvious deformities. NEUROLOGICAL: Awake and alert. No obvious cranial nerve deficits. Motor grossly within normal limits. Five out of 5 muscle strength in the arms and legs. Normal speech. Spastic upper and lower extremity movements. PSYCHIATRIC: Appropriate mood and affect; insight and judgment normal. Data Data Last Documented VS Vital Signs Date Time Temp Pulse Resp B/P (MAP) Pulse Ox O2 Delivery O2 Flow Rate FiO2 01/04/18 18:20 96 Nasal Cannula 2.00 01/04/18 18:20 16 01/04/18 16:25 98.2 81 120/66 (84) Orders Orders Complete Blood Count With Diff (01/04/18 16:51) Comprehensive Metabolic Panel (01/04/18 16:51) Thyroid Stimulating Hormone (01/04/18 16:51) Urinalysis - C+S If Indicated (01/04/18 16:51) Oximetry (01/04/18 16:51) Iv Access Insert/Monitor (01/04/18 16:51) Ecg Monitoring (01/04/18 16:51) Oxygen Administration (01/04/18 16:51) Psych Screen (01/04/18 16:51) Sodium Chloride 0.9% Flush (Ns Flush) (01/04/18 17:00) Drug Screen, Random Urine (01/04/18 16:51) Lamictal (Lamotrigine) (01/04/18 16:51) Call Poison Control (01/04/18 16:51) Promethazine Inj (Phenergan Inj) (01/04/18 17:00) Electrocardiogram (01/04/18 17:01) Tylenol (Acetaminophen) (01/04/18 18:07) Salicylates (Aspirin) (01/04/18 18:07) Alcohol (Ethanol) (01/04/18 18:07) Serum Total Iron (Fe) (01/04/18 18:12) Chest, Single Ap (01/04/18 ) Admit Order (Ed Use Only) (01/04/18 20:00) Labs Laboratory Tests Test 01/04/18 17:00 01/04/18 19:55 White Blood Count 10.0 TH/MM3 Red Blood Count 3.98 MIL/MM3 Hemoglobin 12.3 GM/DL Hematocrit 36.1 % Mean Corpuscular Volume 90.6 FL Mean Corpuscular Hemoglobin 30.9 PG Mean Corpuscular Hemoglobin Concent 34.1 % Red Cell Distribution Width 13.5 % Platelet Count 312 TH/MM3 Mean Platelet Volume 7.3 FL Neutrophils (%) (Auto) 71.3 % Lymphocytes (%) (Auto) 22.6 % Monocytes (%) (Auto) 5.1 % Eosinophils (%) (Auto) 0.6 % Basophils (%) (Auto) 0.4 % Neutrophils # (Auto) 7.2 TH/MM3 Lymphocytes # (Auto) 2.3 TH/MM3 Monocytes # (Auto) 0.5 TH/MM3 Eosinophils # (Auto) 0.1 TH/MM3 Basophils # (Auto) 0.0 TH/MM3 CBC Comment DIFF FINAL Differential Comment Blood Urea Nitrogen 12 MG/DL Creatinine 1.11 MG/DL Random Glucose 144 MG/DL Total Protein 7.1 GM/DL Albumin 3.5 GM/DL Calcium Level 8.7 MG/DL Alkaline Phosphatase 197 U/L Aspartate Amino Transf (AST/SGOT) 30 U/L Alanine Aminotransferase (ALT/SGPT) 29 U/L Total Bilirubin 0.2 MG/DL Sodium Level 141 MEQ/L Potassium Level 3.9 MEQ/L Chloride Level 110 MEQ/L Carbon Dioxide Level 16.0 MEQ/L Anion Gap 15 MEQ/L Estimat Glomerular Filtration Rate 51 ML/MIN Iron Level 67 MCG/DL Thyroid Stimulating Hormone 3rd Gen 1.130 uIU/ML Salicylates Level 3.7 MG/DL Acetaminophen Level LESS THAN 2.0 MCG/ML Ethyl Alcohol Level LESS THAN 3 MG/DL Urine Color YELLOW Urine Turbidity HAZY Urine pH 5.0 Urine Specific [place] 1.021 Urine Protein NEG mg/dL Urine Glucose (UA) NEG mg/dL Urine Ketones NEG mg/dL Urine Occult Blood NEG Urine Nitrite NEG Urine Bilirubin NEG Urine Urobilinogen 2.0 mg/dL Urine Leukocyte Esterase NEG Urine WBC LESS THAN 1 /hpf Urine Squamous Epithelial Cells 2 /hpf Urine Hyaline Casts 4 /lpf Urine Mucus FEW /lpf Microscopic Urinalysis Comment CULT NOT INDICATED Urine Opiates Screen NEG Urine Barbiturates Screen NEG Urine Amphetamines Screen NEG Urine Benzodiazepines Screen NEG Urine Cocaine Screen NEG Urine Cannabinoids Screen POS MDM Medical Decision Making Medical Screen Exam Complete: Yes Emergency Medical Condition: Yes Interpretation(s) Last Impressions Chest X-Ray 01/04/18 0000 Signed Impressions: CONCLUSION: 1. No acute cardiopulmonary disease. Laboratory Tests Test 01/04/18 17:00 01/04/18 19:55 White Blood Count 10.0 TH/MM3 Red Blood Count 3.98 MIL/MM3 Hemoglobin 12.3 GM/DL Hematocrit 36.1 % Mean Corpuscular Volume 90.6 FL Mean Corpuscular Hemoglobin 30.9 PG Mean Corpuscular Hemoglobin Concent 34.1 % Red Cell Distribution Width 13.5 % Platelet Count 312 TH/MM3 Mean Platelet Volume 7.3 FL Neutrophils (%) (Auto) 71.3 % Lymphocytes (%) (Auto) 22.6 % Monocytes (%) (Auto) 5.1 % Eosinophils (%) (Auto) 0.6 % Basophils (%) (Auto) 0.4 % Neutrophils # (Auto) 7.2 TH/MM3 Lymphocytes # (Auto) 2.3 TH/MM3 Monocytes # (Auto) 0.5 TH/MM3 Eosinophils # (Auto) 0.1 TH/MM3 Basophils # (Auto) 0.0 TH/MM3 CBC Comment DIFF FINAL Differential Comment Blood Urea Nitrogen 12 MG/DL Creatinine 1.11 MG/DL Random Glucose 144 MG/DL Total Protein 7.1 GM/DL Albumin 3.5 GM/DL Calcium Level 8.7 MG/DL Alkaline Phosphatase 197 U/L Aspartate Amino Transf (AST/SGOT) 30 U/L Alanine Aminotransferase (ALT/SGPT) 29 U/L Total Bilirubin 0.2 MG/DL Sodium Level 141 MEQ/L Potassium Level 3.9 MEQ/L Chloride Level 110 MEQ/L Carbon Dioxide Level 16.0 MEQ/L Anion Gap 15 MEQ/L Estimat Glomerular Filtration Rate 51 ML/MIN Iron Level 67 MCG/DL Thyroid Stimulating Hormone 3rd Gen 1.130 uIU/ML Salicylates Level 3.7 MG/DL Acetaminophen Level LESS THAN 2.0 MCG/ML Ethyl Alcohol Level LESS THAN 3 MG/DL Urine Color YELLOW Urine Turbidity HAZY Urine pH 5.0 Urine Specific [place] 1.021 Urine Protein NEG mg/dL Urine Glucose (UA) NEG mg/dL Urine Ketones NEG mg/dL Urine Occult Blood NEG Urine Nitrite NEG Urine Bilirubin NEG Urine Urobilinogen 2.0 mg/dL Urine Leukocyte Esterase NEG Urine WBC LESS THAN 1 /hpf Urine Squamous Epithelial Cells 2 /hpf Urine Hyaline Casts 4 /lpf Urine Mucus FEW /lpf Microscopic Urinalysis Comment CULT NOT INDICATED Urine Opiates Screen NEG Urine Barbiturates Screen NEG Urine Amphetamines Screen NEG Urine Benzodiazepines Screen NEG Urine Cocaine Screen NEG Urine Cannabinoids Screen POS Vital Signs Date Time Temp Pulse Resp B/P (MAP) Pulse Ox O2 Delivery O2 Flow Rate FiO2 01/04/18 16:25 98.2 81 19 120/66 (84) 98 Differential Diagnosis Metabolic abnormality versus suicidal ideations versus psychosis versus cardiac arrhythmia versus other Narrative Course Patient is 52-year-old female presenting under Christiansen act after possible overdose for psychiatric evaluation. Patient is alert, vital signs are stable. Labs imaging ordered and pending. CBC with no acute findings. Given to the carbon dioxide of 16, creatinine 1.1, iron is 67. Urine drug screen is positive for marijuana. Salicylate, acetaminophen and alcohol are unremarkable. Lamictal level is still pending. Urinalysis unremarkable. Chest x-ray shows no acute disease. Patient was placed briefly on oxygen, she is currently on room air with an O2 sat of 97%. Patient will be admitted for intentional overdose, acidosis. Diagnosis Primary Impression: Intentional overdose of drug in tablet form Additional Impressions: Acidosis Suicidal ideation Admitting Information Admitting Physician Requests: Observation Condition: Stable Shannan Gupta Jan 04, 2018 18:07
[2018-01-04 18:13] LABS: AST (GOT) 30 U/L (15-37)
[2018-01-04 18:20] VITALS: RESP 16; O2SAT 91
[2018-01-04 18:56] LABS: ACETAMINOPHEN LESS THAN 2.0 MCG/ML (10.0-30.0)
[2018-01-04 20:08] LABS: BILIRUBIN, URINE NEG (NEG); BLOOD, URINE NEG (NEG); GLUCOSE,URINE NEG (NEG); HYALINE CAST, URINE 4 /lpf (RARE); KETONE, URINE NEG (NEG); MUCUS URINE FEW /lpf (OCC); NITRITE,URINE NEG (NEG); SQUAMOUS EPITHELIAL CELL URINE 2 /hpf (0-5); URINE COLOR YELLOW (YELLW/STRAW); URINE LEUKOCYTE ESTERASE NEG (NEG)
--- NOTE | 2018-01-04 20:13 | RADRPT ---
EXAM DATE: 01/04/2018 7:55 PM EDT AGE/SEX: 52 years / Female INDICATIONS: Shortness of breath. CLINICAL DATA: This is the patient's initial encounter. Patient reports that signs and symptoms have been present for 1 day and indicates a pain score of 0/10. MEDICAL/SURGICAL HISTORY: None. None. COMPARISON: No prior exams available for comparison. FINDINGS: A single AP view of the chest demonstrates the lungs to be symmetrically aerated without evidence of mass, infiltrate or effusion. The cardiomediastinal contours are unremarkable. Osseous structures a re intact. CONCLUSION: 1. No acute cardiopulmonary disease. Electronically signed by: Markus Aguero MD 01/04/2018 8:12 PM EDT
[2018-01-04 20:27] VITALS: BP 105/60; PULSE 74; RESP 20; O2SAT 98
[2018-01-04] MEDS ORDERED: LACTULOSE SYRUP 20 GM/30 ML CUP PO PRN (20:45)
[2018-01-04] MEDS ORDERED: ONDANSETRON ODT 4 MG TAB PO PRN (20:45)
[2018-01-04] MEDS ORDERED: ACETAMINOPHEN 325 MG TAB PO PRN (20:45)
[2018-01-04] MEDS ORDERED: NALOXONE HCL 0.4 MG/ML AMP IV PUSH PRN (20:45)
[2018-01-04] MEDS ORDERED: SENNOSIDES 8.6 MG TAB PO PRN (20:45)
[2018-01-04] MEDS ORDERED: SODIUM CHLORIDE 0.9% FLUSH 10 ML FLUSH IV FLUSH PRN (20:45)
[2018-01-04] MEDS ORDERED: MAGNESIUM HYDROXIDE SUSP 30 ML CUP PO PRN (20:45)
[2018-01-04] MEDS ORDERED: BISACODYL 10 MG SUPP RECTAL PRN (20:45)
--- NOTE | 2018-01-04 20:53 | HHI.HP ---
[facility] Unknown Admission Diagnosis INTENTIONAL OVERDOSE Diagnoses: Travel History International Travel<30 Days: No Contact w/Intl Traveler <30 Da: No Traveled to Known Affected Are: No History of Present Illness 52-year-old female with a past medical history significant for multiple psychiatric disturbances presents to the emergency department for the evaluation of an overdose. The patient reports she took "a bunch" of her Lamictal which she says is approximately 8 pills at noon today. She reports feeling dizzy. She fell directly onto her buttock around 130 this afternoon onto a concrete curb secondary to this dizziness and now complains of severe coccygeal pain. The patient reports she overdosed on purpose because she was trying to commit suicide. She states she is homeless and does not know how to deal with this. She denies any chest pain or shortness of breath. No fevers/ chills. No abdominal pain. No nausea/vomiting/diarrhea. Review of Systems Except as stated in HPI: all other systems reviewed are Neg Past Family Social History Past Medical History Bipolar disorder Personality disorder PTSD Psychosis Anxiety Paranoia Diabetes mellitus Past Surgical History 4 Left leg repair status post trauma Reported Medications Reported Meds & Active Scripts Active Thera Tablet (Multivitamin with Folic Acid) 400 Mcg Tablet 1 Tab PO DAILY Celexa (Citalopram Hydrobromide) 20 Mg Tab 10 Mg PO HS 10 Days Lamictal (Lamotrigine) 100 Mg Tab 100 Mg PO DAILY 1 Days Order is to update med rec only. Pt has supply at home. Neurontin (Gabapentin) 400 Mg Cap 800 Mg PO QID [address] (Duloxetine HCl) 60 Mg Capdr 60 Mg PO BID 15 Days Allergies: Coded Allergies: divalproex sodium (Verified Allergy, Severe, Anaphylaxis, 01/04/18) latex (Verified Allergy, Severe, Rash, 01/04/18) lithium (Verified Allergy, Severe, Anaphylaxis, 01/04/18) NSAIDS (Non-Steroidal Anti-Inflamma (Verified Allergy, Unknown, 01/04/18) aspirin (Verified Allergy, Unknown, 01/04/18) diclofenac (Verified Allergy, Unknown, 01/04/18) etodolac (Verified Allergy, Unknown, 01/04/18) flurbiprofen (Verified Allergy, Unknown, 01/04/18) ibuprofen (Verified Allergy, Unknown, 01/04/18) indomethacin (Verified Allergy, Unknown, 01/04/18) ketoprofen (Verified Allergy, Unknown, 01/04/18) ketorolac (Verified Allergy, Unknown, 01/04/18) naproxen (Verified Allergy, Unknown, 01/04/18) oxaprozin (Verified Allergy, Unknown, 01/04/18) Family History Patient does not know Social History Smokes approximately 1 pack per day. Occasional alcohol. Positive marijuana. Denies all other illicit drugs. Physical Exam Vital Signs Vital Signs Date Time Temp Pulse Resp B/P (MAP) Pulse Ox O2 Delivery O2 Flow Rate FiO2 01/04/18 20:27 74 20 105/60 (75) 98 Room Air 01/04/18 18:20 96 Nasal Cannula 2.00 01/04/18 18:20 16 91 Room Air 01/04/18 16:25 98.2 81 19 120/66 (84) 98 Physical Exam GENERAL: female lying in bed SKIN: No rashes, ecchymoses or lesions. Cool and dry. HEAD: Atraumatic. Normocephalic. No temporal or scalp tenderness. EYES: Pupils equal round and reactive. Extraocular motions intact. No scleral icterus. No injection or drainage. ENT: Nose without bleeding, purulent drainage or septal hematoma. Throat without erythema, tonsillar hypertrophy or exudate. Uvula midline. Airway patent. NECK: Trachea midline. No JVD or lymphadenopathy. Supple, nontender, no meningeal signs. CARDIOVASCULAR: Regular rate and rhythm without murmurs, gallops, or rubs. RESPIRATORY: Clear to auscultation. Breath sounds equal bilaterally. No wheezes , rales, or rhonchi. GASTROINTESTINAL: Abdomen soft, non-tender, nondistended. No hepato-splenomegaly , or palpable masses. No guarding. MUSCULOSKELETAL: Extremities without clubbing, cyanosis, or edema. No joint tenderness, effusion, or edema noted. No calf tenderness. NEUROLOGICAL: Awake and alert. Cranial nerves II through XII intact. Motor and sensory grossly within normal limits. Normal speech. PSYCH: Flat affect. Laboratory Laboratory Tests Test 01/04/18 17:00 01/04/18 19:55 White Blood Count 10.0 Red Blood Count 3.98 Hemoglobin 12.3 Hematocrit 36.1 Mean Corpuscular Volume 90.6 Mean Corpuscular Hemoglobin 30.9 Mean Corpuscular Hemoglobin Concent 34.1 Red Cell Distribution Width 13.5 Platelet Count 312 Mean Platelet Volume 7.3 Neutrophils (%) (Auto) 71.3 Lymphocytes (%) (Auto) 22.6 Monocytes (%) (Auto) 5.1 Eosinophils (%) (Auto) 0.6 Basophils (%) (Auto) 0.4 Neutrophils # (Auto) 7.2 Lymphocytes # (Auto) 2.3 Monocytes # (Auto) 0.5 Eosinophils # (Auto) 0.1 Basophils # (Auto) 0.0 CBC Comment DIFF FINAL Differential Comment Blood Urea Nitrogen 12 Creatinine 1.11 Random Glucose 144 Total Protein 7.1 Albumin 3.5 Calcium Level 8.7 Alkaline Phosphatase 197 Aspartate Amino Transf (AST/SGOT) 30 Alanine Aminotransferase (ALT/SGPT) 29 Total Bilirubin 0.2 Sodium Level 141 Potassium Level 3.9 Chloride Level 110 Carbon Dioxide Level 16.0 Anion Gap 15 Estimat Glomerular Filtration Rate 51 Iron Level 67 Thyroid Stimulating Hormone 3rd Gen 1.130 Salicylates Level 3.7 Acetaminophen Level LESS THAN 2.0 Ethyl Alcohol Level LESS THAN 3 Urine Color YELLOW Urine Turbidity HAZY Urine pH 5.0 Urine Specific Marilla 1.021 Urine Protein NEG Urine Glucose (UA) NEG Urine Ketones NEG Urine Occult Blood NEG Urine Nitrite NEG Urine Bilirubin NEG Urine Urobilinogen 2.0 Urine Leukocyte Esterase NEG Urine WBC LESS THAN 1 Urine Squamous Epithelial Cells 2 Urine Hyaline Casts 4 Urine Mucus FEW Microscopic Urinalysis Comment CULT NOT INDICATED Urine Opiates Screen NEG Urine Barbiturates Screen NEG Urine Amphetamines Screen NEG Urine Benzodiazepines Screen NEG Urine Cocaine Screen NEG Urine Cannabinoids Screen POS Result Diagram: 01/04/18 17001/04/[id number] Caprini VTE Risk Assessment Caprini VTE Risk Assessment: No/Low Risk (score <= 1) Caprini Risk Assessment Model Point Value = 1 Point Value = 2 Point Value = 3 Point Value = 5 Age 41-60 Minor surgery BMI > 25 kg/m2 Swollen legs Varicose veins or History of unexplained or recurrent spontaneous Oral contraceptives or hormone replacement Sepsis (< 1 month) Serious lung disease, including pneumonia (< 1 month) Abnormal pulmonary function Acute myocardial infarction Congestive heart failure (< 1 month) History of inflammatory bowel disease Medical patient at bed rest Age 61-74 Arthroscopic surgery Major open surgery (> 45 min) Laparoscopic surgery (> 45 min) Malignancy Confined to bed (> 72 hours) Immobilizing plaster cast Central venous access Age >= 75 History of VTE Family history of VTE Factor V Leiden Prothrombin [id number] Lupus anticoagulant Anticardiolipin antibodies Elevated serum homocysteine Heparin-induced thrombocytopenia Other congenital or acquired thrombophilia Stroke (< 1 month) Elective arthroplasty Hip, pelvis, or leg fracture Acute spinal cord injury (< 1 month) Prophylaxis Regimen Total Risk Factor Score Risk Level Prophylaxis Regimen 0-1 Low Early ambulation 2 Moderate Order ONE of the following: *Sequential Compression Device (SCD) *Heparin 5000 units SQ BID 3-4 Higher Order ONE of the following medications: *Heparin 5000 units SQ TID *Enoxaparin/Lovenox 40 mg SQ daily (WT < 150 kg, CrCl > 30 mL/min) *Enoxaparin/Lovenox 30 mg SQ daily (WT < 150 kg, CrCl > 10-29 mL/min) *Enoxaparin/Lovenox 30 mg SQ BID (WT < 150 kg, CrCl > 30 mL/min) AND/OR *Sequential Compression Device (SCD) 5 or more Highest Order ONE of the following medications: *Heparin 5000 units SQ TID (Preferred with Epidurals) *Enoxaparin/Lovenox 40 mg SQ daily (WT < 150 kg, CrCl > 30 mL/min) *Enoxaparin/Lovenox 30 mg SQ daily (WT < 150 kg, CrCl > 10-29 mL/min) *Enoxaparin/Lovenox 30 mg SQ BID (WT < 150 kg, CrCl > 30 mL/min) AND *Sequential Compression Device (SCD) Assessment and Plan Assessment and Plan Assessment/plan: 1. Intentional overdose Patient admits to taking Lamictal with the intent to kill herself Psychiatry consulted, appreciate assistance [facility] Poison control contacted recommend monitoring at this time. No further lab work needed. 2. Diabetes mellitus Patient reports she is supposed to be on Januvia at home however she does not take this Sliding-scale insulin Monitor blood glucose 3. Multiple psychiatric illnesses Psychiatry consulted as above Holding psychiatric medication secondary to overdose at this time FEN Diabetic diet Electrolytes: Monitor and replete as needed NS at 100 cc/hour Neela Somers MD Jan 04, 2018 20:53
[2018-01-04] MEDS ORDERED: GLUCAGON 1 MG/ML VIAL OTHER PRN (21:00)
[2018-01-04] MEDS: DOCUSATE SODIUM 50 MG/SENNA 8.6 MG TAB PO SCH (21:00)
[2018-01-04] MEDS ORDERED: DEXTROSE 50% IN WATER 50 ML VIAL(D50) IV PUSH PRN (21:00)
--- NOTE | 2018-01-04 21:20 | RADRPT ---
EXAM DATE: 01/04/2018 9:09 PM EDT AGE/SEX: 52 years / Female INDICATIONS: Lower back pain after fall on curb. Pain in tailbone. CLINICAL DATA: This is the patient's initial encounter. Patient reports that signs and symptoms have been present for 1 day and indicates a pain score of 10/10. MEDICAL/SURGICAL HISTORY: . Prior fracture to coccyx. None. COMPARISON: No prior exams available for comparison. FINDINGS: Slight cortical irregularity of the first coccyx. Remaining osseous structures are intact. The sacral ala and foramina appear symmetric and intact. The prevertebral soft tissues are within normal limit s. CONCLUSION: 1. Slight cortical irregularity of the first coccyx concerning for fracture. Electronically signed by: Markus Aguero MD 01/04/2018 9:19 PM EDT
[2018-01-04] MEDS: SODIUM CHLORIDE 0.9% FLUSH 10 ML FLUSH IV FLUSH SCH (22:17)
[2018-01-04] MEDS: INSULIN ASPART SUPPLEMENTAL SCALE SQ SCH (22:26)
[2018-01-04 22:43] VITALS: BP 110/59; PULSE 80; RESP 18; TEMP 98.4; O2SAT 97
[2018-01-04 23:00] VITALS: PULSE 69
[2018-01-04] MEDS: SODIUM CHLOR 0.9% 1000 ML INJ 1,000 ML IV SCH (23:37)
[2018-01-05 03:05] VITALS: BP 98/59; PULSE 75; RESP 16; TEMP 98.2; O2SAT 98
[2018-01-05 06:21] LABS: AUTOMATED NEUTROPHIL # 4.6 TH/MM3 (1.8-7.7); BASOPHIL % 0.4 % (0.0-2.0); EOSINOPHIL # 0.1 TH/MM3 (0-0.4); EOSINOPHIL % 1.6 % (0.0-4.0); HEMATOCRIT 34.5 % (35.0-46.0); HEMOGLOBIN 11.8 GM/DL (11.6-15.3); LYMPH % 34.5 % (9.0-44.0); LYMPHOCYTE # 2.8 TH/MM3 (1.0-4.8); MEAN CELL VOLUME 90.3 FL (80.0-100.0); MEAN CORPUSCULAR HEMOGLOBIN 30.9 PG (27.0-34.0); MEAN CORPUSCULAR HGB CONC 34.2 % (32.0-36.0); MONO % 6.6 % (0.0-8.0); MONOCYTE # 0.5 TH/MM3 (0-0.9); NEUT % 56.9 % (16.0-70.0); PLATELET COUNT 300 TH/MM3 (150-450); RED BLOOD COUNT 3.82 MIL/MM3 (4.00-5.30); RED CELL DISTRIBUTION WIDTH 13.7 % (11.6-17.2)
[2018-01-05 06:42] LABS: ALBUMIN 3.2 GM/DL (3.4-5.0); AST (GOT) 23 U/L (15-37); BICARBONATE 22.6 MEQ/L (21.0-32.0); BLOOD UREA NITROGEN 13 MG/DL (7-18); CALCIUM 8.2 MG/DL (8.5-10.1); CHLORIDE 110 MEQ/L (98-107); CREATININE 0.94 MG/DL (0.50-1.00); GLOMERULAR FILTRATION RATE 62 ML/MIN (>89); GLUCOSE,RANDOM 94 MG/DL (74-106); SODIUM (NA) 142 MEQ/L (136-145)
[2018-01-05 06:44] LABS: ALT (GPT) 30 U/L (10-53)
[2018-01-05 06:46] LABS: ALKALINE PHOSPHATASE 188 U/L (45-117); TOTAL BILIRUBIN ADULT 0.2 MG/DL (0.2-1.0); TOTAL PROTEIN 6.7 GM/DL (6.4-8.2)
[2018-01-05 07:33] VITALS: PULSE 74
--- NOTE | 2018-01-05 07:33 | EKG ---
Date Performed: 01/04/2018 Time Performed: 17:01:14 PTAGE: 52 years EKG: Sinus rhythm NORMAL ECG PREVIOUS TRACING : 05/05/2017 19.31 DOCTOR: Neel Molina Interpretating Date/Time 01/05/2018 07:30:41
[2018-01-05 07:57] VITALS: BP 129/76; PULSE 66; RESP 20; TEMP 98.2; O2SAT 98
[2018-01-05] MEDS: INSULIN ASPART SUPPLEMENTAL SCALE SQ SCH ×2 (08:00→12:00)
[2018-01-05] MEDS: DOCUSATE SODIUM 50 MG/SENNA 8.6 MG TAB PO SCH (09:00)
[2018-01-05] MEDS: SODIUM CHLORIDE 0.9% FLUSH 10 ML FLUSH IV FLUSH SCH (09:00)
[2018-01-05] MEDS: SODIUM CHLOR 0.9% 1000 ML INJ 1,000 ML IV SCH (09:25)
--- NOTE | 2018-01-05 10:27 | HHI.PR ---
Subjective Remarks Nursing denies any deterioration since last night. Patient also complaining of tailbone pain. Now she says she does not want to kill herself. Objective Vital Signs Date Time Temp Pulse Resp B/P (MAP) Pulse Ox O2 Delivery O2 Flow Rate FiO2 01/05/18 07:57 98.2 66 20 129/76 (93) 98 01/05/18 07:33 74 01/05/18 03:05 98.2 75 16 98/59 (72) 98 01/04/18 23:00 69 01/04/18 22:43 98.4 80 18 110/59 (76) 97 01/04/18 21:40 01/04/18 20:27 74 20 105/60 (75) 98 Room Air 01/04/18 18:20 96 Nasal Cannula 2.00 01/04/18 18:20 16 91 Room Air 01/04/18 16:25 98.2 81 19 120/66 (84) 98 Result Diagram: 01/05/18 0538 01/05/18 0538 Objective Remarks Alert and oriented 3 Unlabored breathing, clear lungs bilaterally, no tremors noted A/P Assessment and Plan No deterioration since last night. Patient herself denies any suicidal ideations at this time. Does report that her tailbone still hurts. Says Tylenol does not help. Clear to discharge to med psych. Will need to follow-up lamotrigine levels, will hold off on Lamictal dosing at this time to lamotrigine levels return. Maikel Wolf MD Jan 05, 2018 10:27
[2018-01-05] MEDS ORDERED: LIDOCAINE HCL 5% PATCH T-DERMAL SCH (10:30)
[2018-01-05 12:00] VITALS: BP 126/69; PULSE 76; RESP 18; TEMP 97.8; O2SAT 98
[2018-01-05 12:23] VITALS: PULSE 74
--- NOTE | 2018-01-05 13:00 | PD.PSY.CON ---
Provisional Diagnosis Admission Date Jan 04, 2018 at 20:01 [place] I. Bipolar disorder, depressed mood, PTSD [place] II. Unspecified personality disorder, rule out borderline personality disorder [place] III. Diabetes, COPD, lower back pain [place] IV. Multiple psychiatric hospitalizations, multiple suicide attempts, homelessness [place] V. 40 History of Present Illness Service Psychiatry Consult Requested By ER Reason for Consult Suicidal attempt Primary Care Physician Unknown HPI The patient is a 52-year-old homeless woman, unemployed, supported by [facility], mother of 6 kids, with a psychiatric history of PTSD, bipolar disorder, personality disorder, multiple psychiatric hospitalizations, she was hospitalized here at [facility] in May 2017, the recommendation review, establish outpatient psychiatric care in the [facility], she is on Lamictal 100 bid, Cymbalta 60, trazodone, Celexa 10, gabapentin 300 mg 3 times daily, with a past medical history significant for diabetes, lower back pain, COPD, who presents to the emergency department for the evaluation of an overdose. T he patient reports she took "a bunch" of her Lamictal which she says is approximately 8 pills at noon today. She reports feeling dizzy. She fell directly onto her buttock around 130 this afternoon onto a concrete curb secondary to this dizziness and now complains of severe coccygeal pain. The patient reports she overdosed on purpose because she was trying to commit suicide. She states she is homeless and does not know how to deal with this. She denies any chest pain or shortness of breath. No fevers/chills. No abdominal pain. No nausea/vomiting/diarrhea. EMR was reviewed. The case was discussed with primary medical team and nurse in charge. On my psychiatric evaluation the patient is found calm, cooperative, but very tearful. The patient reports that she has been quite depressed, she says that she has been homeless, unable to take her medications, is struggling with financial problems , she does not have any family or friends around, she has been feeling quite overwhelmed, with increased sensitivity to rejection, frustration and abdomen. She reports that her kids have now been answering her phone. Yesterday she felt desperate, and she just wanted to end it all. The patient reports that she overdose with only intention to . At this moment she reports feeling better, but feeling quite anxious, almost paranoid. The patient is ambivalent about suicidal ideation, plan at the moment, was able to contract for safety. She denies visual and auditory hallucinations, homicidal ideation. She is oriented x3, no attention deficit, no further twitching of consciousness. She reports the use of biter alcohol occasionally. Review of Systems Constitutional: DENIES: Diaphoretic episodes, Fatigue, Fever, Weight gain, Weight loss, Chills, Dizziness, Change in appetite, Night Sweats Endocrine: DENIES: Abnorml menstrual pattern, Heat/cold intolerance, Polydipsia , Polyuria, Polyphagia Eyes: DENIES: Blurred vision, Diplopia, Eye inflammation, Eye pain, Vision loss , Photosensitivity, Double Vision Respiratory: DENIES: Apneas, Cough, Snoring, Wheezing, Hemoptysis, Sputum production, Shortness of breath Cardiovascular: DENIES: Chest pain, Palpitations, Syncope, Dyspnea on Exertion , PND, Lower Extremity Edema, Orthopnea, Claudication Gastrointestinal: DENIES: Abdominal pain, Black stools, Bloody stools, Constipation, Diarrhea, Nausea, Vomiting, Difficulty Swallowing, Anorexia Genitourinary: DENIES: Abnormal vaginal bleeding, Dysmenorrhea, Dyspareunia, Sexual dysfunction, Urinary frequency, Urinary incontinence, Urgency, Hematuria , Dysuria, Nocturia, Vaginal discharge Musculoskeletal: DENIES: Joint pain, Muscle aches, Stiffness, Joint Swelling, Back pain, Neck pain Integumentary: DENIES: Abnormal pigmentation, Pruritus, Rash, Nail changes, Breast masses, Breast skin changes, Nipple discharge Hematologic/lymphatic: DENIES: Bruising, Lymphadenopathy Immunologic/allergic: DENIES: Eczema, Urticaria Neurologic: DENIES: Abnormal gait, Headache, Localized weakness, Paresthesias, Seizures, Speech Problems, Tremor, Poor Balance Psychiatric: COMPLAINS OF: Depression, Suicidal Ideation, DENIES: Anxiety, Confusion, Mood changes, Hallucinations, Agitation, Homicidal Ideation, Delusions Past Family Social History Coded Allergies: divalproex sodium (Verified Allergy, Severe, Anaphylaxis, 01/04/18) latex (Verified Allergy, Severe, Rash, 01/04/18) lithium (Verified Allergy, Severe, Anaphylaxis, 01/04/18) NSAIDS (Non-Steroidal Anti-Inflamma (Verified Allergy, Unknown, 01/04/18) aspirin (Verified Allergy, Unknown, 01/04/18) diclofenac (Verified Allergy, Unknown, 01/04/18) etodolac (Verified Allergy, Unknown, 01/04/18) flurbiprofen (Verified Allergy, Unknown, 01/04/18) ibuprofen (Verified Allergy, Unknown, 01/04/18) indomethacin (Verified Allergy, Unknown, 01/04/18) ketoprofen (Verified Allergy, Unknown, 01/04/18) ketorolac (Verified Allergy, Unknown, 01/04/18) naproxen (Verified Allergy, Unknown, 01/04/18) oxaprozin (Verified Allergy, Unknown, 01/04/18) Active Scripts Multivitamin with Folic Acid (Thera Tablet) 400 Mcg Tablet, 1 TAB PO DAILY, #30 Prov:Tahir Kang MD 06/08/17 Citalopram (Celexa) 20 Mg Tab, 10 MG PO HS for Mental Health for 10 Days, TAB 2 Refills Prov:Nemesio Eddy MD 05/07/17 Lamotrigine (Lamictal) 100 Mg Tab, 100 MG PO DAILY for Mental Health for 1 Day, #1 TAB 0 Refills Order is to update med rec only. Pt has supply at home. Prov:Nemesio Eddy MD 05/07/17 Gabapentin (Neurontin) 400 Mg Cap, 800 MG PO QID for Health for 15 Days, CAP 1 Refill Prov:Nemesio Eddy MD 08/18/16 Duloxetine (Dylan BANSAL) 60 Mg Capdr, 60 MG PO BID for 15 Days, CAP 1 Refill Prov:Nemesio Eddy MD 08/18/16 Discontinued Reported Medications Hydroxyzine Pamoate (Vistaril) 25 Mg Cap, 50 MG PO HS, CAP 0 Refills 05/05/17 Discontinued Scripts Lidocaine (Lidoderm) 5 % Adh..patch, 2 PATCH T-DERMAL DAILY for 10 Days Prov:Tahir Kang MD 06/08/17 Sitagliptin (Januvia) 50 Mg Tab, 50 MG PO DAILY, #30 TAB Prov:Tahir Kang MD 06/08/17 Famotidine (Famotidine) 20 Mg Tab, 20 MG PO BID, #60 TAB Prov:Tahir Kang MD 06/08/17 Sennosides-Docusate Sodium (Gnp Senna Plus 8.6-50 mg) 8.6 Mg-50 Mg Tab, 1 TAB PO BID Y for CONSTIPATION, #60 TAB Prov:Tahir Kang MD 06/08/17 Zolpidem (Ambien) 5 Mg Tab, 5 MG PO HS Y for INSOMNIA, #30 TAB Prov:Tahir Kang MD 06/08/17 [chlorproMAZINE] 50 MG TAB No Conflict Check, 50 MG PO Q12HR, #60 Prov:Tahir Kang MD 06/08/17 Citalopram (Celexa) 20 Mg Tab, 20 MG PO DAILY, #30 TAB Prov:Tahir Kang MD 06/08/17 Methocarbamol (Methocarbamol) 500 Mg Tab, 750 MG PO Q8HR Y for MUSCLE SPASM, # 90 TAB Prov:Tahir Kang MD 06/08/17 Gabapentin (Neurontin) 400 Mg Cap, 400 MG PO TID for Pain Management, #90 CAP Prov:aThir Kang MD 06/08/17 Oxycodone-Acetaminophen (Endocet) 10-325 mg Tab, 1-2 TAB PO Q4H Y for Pain Management, #60 TAB 0 Refills Prov:Tahir Kang MD 06/08/17 Enoxaparin Inj (Enoxaparin Inj) 40 Mg/0.4 Ml Syr, 40 MG SQ DAILY for Blood Clot Prevention, #7 SYRINGE 0 Refills Prov:Tahir Kang MD 06/08/[address] (Cymbalta ) 60 Mg Capdr, 60 MG PO BID, #60 CAP 0 Refills Prov:Tahir Kang MD 06/08/17 [Dextrose 50% In Curt (Vial) Inj] 50 ML INJ No Conflict Check, 50 ML IV PUSH UNSCH Y for HYPOGLYCEMIA-SEE COMMENTS for 5 Days, ML Prov:Monique Chaudhari 05/28/17 [Glucagon Inj] 1 MG/ML INJ No Conflict Check, 1 MG OTHER UNSCH Y for HYPOGLYCEMIA-SEE COMMENTS for 5 Days Prov:Monique Chaudhari 05/28/17 Walker with Front Wheels (Walker with Front Wheels) 1 Mis Mis, EA .ROUTE DIRECTED, #1 0 Refills Prov:Elvis Moreno FELIBERTO 05/24/17 Commode 3-in-1 (Commode 3-in-1) 1 Mis Mis, EA .ROUTE DIRECTED, #1 0 Refills Prov:Elvis Moreno FELIBERTO 05/24/17 Sitagliptin (Januvia) 50 Mg Tab, 100 MG PO DAILY for Blood Sugar Management for 1 Day, #2 TAB 0 Refills Order is to update med rec only. Pt has supply at home. Prov:Nemesio Eddy MD 05/07/17 [Chlorpromazine] 100 MG TAB No Conflict Check, 200 MG PO BID for Mental Health for 1 Day, 0 Refills Order is to update med rec only. Pt has supply at home. Prov:Nemesio Eddy MD 05/07/17 Current Medications Medications (Trade) Dose Ordered Sig/Artemio Route Start Time Stop Time Status Last Admin Sodium Chloride 1,000 ml @ 100 mls/hr Q10H IV 01/04/18 20:43 01/05/18 09:25 (NS Flush) 2 ml UNSCH PRN IV FLUSH 01/04/18 20:45 (NS Flush) 2 ml BID IV FLUSH 01/04/18 21:00 (Tylenol) 650 mg Q4H PRN PO 01/04/18 20:45 (Zofran Odt) 4 mg Q6H PRN PO 01/04/18 20:45 (Narcan Inj) 0.4 mg UNSCH PRN IV PUSH 01/04/18 20:45 (Kanwal-Colace) 1 tab BID PO 01/04/18 21:00 (Milk Of Magnesia Liq) 30 ml Q12H PRN PO 01/04/18 20:45 (Senokot) 17.2 mg Q12H PRN PO 01/04/18 20:45 (Dulcolax Supp) 10 mg DAILY PRN RECTAL 01/04/18 20:45 (Lactulose Liq) 30 ml DAILY PRN PO 01/04/18 20:45 (D50w (Vial) Inj) 50 ml UNSCH PRN IV PUSH 01/04/18 21:00 (Glucagon Inj) 1 mg UNSCH PRN OTHER 01/04/18 21:00 (NovoLOG SUPPLEMENTAL SCALE) 1 ACHS SLIDING SCALE SQ 01/04/18 21:00 (Lidoderm 5% Patch.12 Hr) 1 patch DAILY T-DERMAL 01/05/18 10:30 01/05/18 10:47 Miscellaneous Information 1 Q24H T-DERMAL 01/05/18 21:00 Family Psych History Her father has bipolar disorder Social History The patient was born and raised in [place], she is homeless, single, she has a boyfriend, 6 kids, support by SSI Patient's Strengths (min. 2) Outpatient psychiatric care in [facility] Physical Exam No tremors, no EPS, No gait disturbances, Vital Signs Vital Signs Date Time Temp Pulse Resp B/P (MAP) Pulse Ox O2 Delivery O2 Flow Rate FiO2 01/05/18 12:23 74 01/05/18 07:57 98.2 20 129/76 (93) 98 01/04/18 20:27 Room Air 01/04/18 18:20 2.00 Lab Results Test 01/04/18 17:00 01/04/18 19:55 01/05/18 05:38 White Blood Count 10.0 TH/MM3 8.0 TH/MM3 Red Blood Count 3.98 MIL/MM3 3.82 MIL/MM3 Hemoglobin 12.3 GM/DL 11.8 GM/DL Hematocrit 36.1 % 34.5 % Mean Corpuscular Volume 90.6 FL 90.3 FL Mean Corpuscular Hemoglobin 30.9 PG 30.9 PG Mean Corpuscular Hemoglobin Concent 34.1 % 34.2 % Red Cell Distribution Width 13.5 % 13.7 % Platelet Count 312 TH/MM3 300 TH/MM3 Mean Platelet Volume 7.3 FL 7.0 FL Neutrophils (%) (Auto) 71.3 % 56.9 % Lymphocytes (%) (Auto) 22.6 % 34.5 % Monocytes (%) (Auto) 5.1 % 6.6 % Eosinophils (%) (Auto) 0.6 % 1.6 % Basophils (%) (Auto) 0.4 % 0.4 % Neutrophils # (Auto) 7.2 TH/MM3 4.6 TH/MM3 Lymphocytes # (Auto) 2.3 TH/MM3 2.8 TH/MM3 Monocytes # (Auto) 0.5 TH/MM3 0.5 TH/MM3 Eosinophils # (Auto) 0.1 TH/MM3 0.1 TH/MM3 Basophils # (Auto) 0.0 TH/MM3 0.0 TH/MM3 CBC Comment DIFF FINAL DIFF FINAL Differential Comment Blood Urea Nitrogen 12 MG/DL 13 MG/DL Creatinine 1.11 MG/DL 0.94 MG/DL Random Glucose 144 MG/DL 94 MG/DL Total Protein 7.1 GM/DL 6.7 GM/DL Albumin 3.5 GM/DL 3.2 GM/DL Calcium Level 8.7 MG/DL 8.2 MG/DL Alkaline Phosphatase 197 U/L 188 U/L Aspartate Amino Transf (AST/SGOT) 30 U/L 23 U/L Alanine Aminotransferase (ALT/SGPT) 29 U/L 30 U/L Total Bilirubin 0.2 MG/DL 0.2 MG/DL Sodium Level 141 MEQ/L 142 MEQ/L Potassium Level 3.9 MEQ/L 4.3 MEQ/L Chloride Level 110 MEQ/L 110 MEQ/L Carbon Dioxide Level 16.0 MEQ/L 22.6 MEQ/L Anion Gap 15 MEQ/L 9 MEQ/L Estimat Glomerular Filtration Rate 51 ML/MIN 62 ML/MIN Iron Level 67 MCG/DL Thyroid Stimulating Hormone 3rd Gen 1.130 uIU/ML Salicylates Level 3.7 MG/DL Acetaminophen Level LESS THAN 2.0 MCG/ML Ethyl Alcohol Level LESS THAN 3 MG/DL Urine Color YELLOW Urine Turbidity HAZY Urine pH 5.0 Urine Specific [place] 1.021 Urine Protein NEG mg/dL Urine Glucose (UA) NEG mg/dL Urine Ketones NEG mg/dL Urine Occult Blood NEG Urine Nitrite NEG Urine Bilirubin NEG Urine Urobilinogen 2.0 mg/dL Urine Leukocyte Esterase NEG Urine WBC LESS THAN 1 /hpf Urine Squamous Epithelial Cells 2 /hpf Urine Hyaline Casts 4 /lpf Urine Mucus FEW /lpf Microscopic Urinalysis Comment CULT NOT INDICATED Urine Opiates Screen NEG Urine Barbiturates Screen NEG Urine Amphetamines Screen NEG Urine Benzodiazepines Screen NEG Urine Cocaine Screen NEG Urine Cannabinoids Screen POS Mental Status Examination Appearance: Appropriate Consciousness: Alert Orientation: x4 Motor Activity: Normal gait Speech: Unremarkable Language: Adequate Fund of Knowledge: Adequate Attention and Concentration: Adequate Memory: Unremarkable Mood: Appropriate, Sad Affect: Sad Thought Process & Associations: Intact Thought Content: Appropriate Hallucination Type: None Delusion Type: None Suicidal Ideation: Yes Suicidal Plan: Yes Suicidal Intention: No Homicidal Ideation: No Homicidal Plan: No Homicidal Intention: No Insight: Poor Judgment: Poor Assessment & Plan Problem List: (1) Bipolar disorder ICD Codes: F31.9 - Bipolar disorder, unspecified Status: Acute Assessment & Plan: Psychiatric evaluation today the patient presents with symptoms of severe depression, hopelessness, helplessness, psychomotor retardation, worthlessness, increased sensitivity to rejection, frustration, sense of rejection and abandonment, persistent suicidal ideation. The patient has tried to commit suicide by overdosing with multiple pills of Lamictal. There is a patient with an extensive history of PTSD, bipolar disorder, multiple psychiatric hospitalizations, multiple suicidal attempts, borderline personality disorder, poor impulse control, noncompliant with medications, and also past use of recreational drugs. This patient has an elevated risk of danger to self. Continue psychiatric hospitalization for stabilization. I will restart her Cymbalta 60 mg, trazodone 100 mg at bedtime. Patient would be admitted in psychiatry was medically appropriate. Brief supportive psychotherapy, psychoeducation and motivation provided. Assessment & Plan Estimated LOS: Rohan Evans MD Jan 05, 2018 13:00
--- NOTE | 2018-01-05 14:33 | HHI.DCPOC ---
Discharge Care Plan Diagnosis: (1) Intentional overdose of drug in tablet form Goals to Promote Your Health * To prevent worsening of your condition and complications * To maintain your health at the optimal level Directions to Meet Your Goals Take your medications as prescribed Follow your dietary instruction Follow activity as directed Keep your appointments as scheduled Take your immunizations and boosters as scheduled If your symptoms worsen call your PCP, if no PCP go to Urgent Care Center or Emergency Room Smoking is Dangerous to Your Health. Avoid second hand smoke Call the 24-hour hour crisis hotline for domestic abuse at Maikel Wolf MD Jan 05, 2018 14:33
[2018-01-05 15:16] VITALS: BP 120/67; PULSE 80; RESP 19; TEMP 98.6; O2SAT 98
[2018-01-05] MEDS ORDERED: REMOVE OLD LIDOCAINE PATCH T-DERMAL SCH (21:00)
== END 2018-01-05 16:48 ==
LOC: NEPE 16:19 → NEDA 20:01 → NEPGCP 21:29
PROVIDERS: ADMIT Hospitalist; ATTEND Hospitalist
DX: T42.6X2A Poisoning by other antiepileptic and sedative-hypnotic drugs, intentional self-harm, initial encounter (principal); E11.9 Type 2 diabetes mellitus without complications; E87.2 Acidosis; R42 Dizziness and giddiness; M53.3 Sacrococcygeal disorders, not elsewhere classified; Z59.0 Homelessness; F31.9 Bipolar disorder, unspecified; F43.10 Post-traumatic stress disorder, unspecified; F41.9 Anxiety disorder, unspecified; J44.9 Chronic obstructive pulmonary disease, unspecified; F60.3 Borderline personality disorder; K21.9 Gastro-esophageal reflux disease without esophagitis; G47.30 Sleep apnea, unspecified; M19.90 Unspecified osteoarthritis, unspecified site; F12.90 Cannabis use, unspecified, uncomplicated; F17.200 Nicotine dependence, unspecified, uncomplicated; Z79.899 Other long term (current) drug therapy
CPT/HCPCS: 71045; 72220; 80053; 80175; 80307; 81001; 82948; 83540; 84443; 85025; 93005; 96360; 96361; 96372; 99285; G0378; J2550; J7030

== ENCOUNTER 2018-01-05 15:33 | Inpatient (IN) | payer MEDICARE ==
[~2018-01-05] VITALS: Ht 162.6 cm; Wt 71.3 kg
[~2018-01-05 15:33] MED LIST changes: -AMBI5TAB PO; +CITALOPRAM HYDROBROMIDE 20 MG TAB PO SCH; -COMMODE 3-IN-11 MIS; -Chlorpromazine PO; -Dextrose 50% In Wat (Vial) Inj IV PUSH; -ENDO10TA8 PO; -ENOX40IN SQ; -FAMO20TA2 PO; -Glucagon Inj OTHER; -LIDO1ADH4 T-DERMAL; -METH500T3 PO; -PERI PO; -SITA50 PO; -VIST25CA PO; -WALKER WHEELS/F1 MIS; -chlorproMAZINE PO
[2018-01-05 18:20] VITALS: BP 125/59; PULSE 60; RESP 17; TEMP 97.9; O2SAT 98
[2018-01-05] MEDS ORDERED: hydrOXYzine HCL 50 MG TAB PO PRN (20:00)
[2018-01-05] MEDS ORDERED: ALUMINUM/MAGNESIUM/SIMETH 30 ML CUP PO PRN (20:00)
[2018-01-05] MEDS ORDERED: diphenhydrAMINE HCL 50 MG CAP - HS PRN PO (20:00)
[2018-01-05] MEDS ORDERED: diphenhydrAMINE HCL 50 MG/ML VIAL - HS PRN IM (20:00)
[2018-01-05] MEDS ORDERED: MAGNESIUM HYDROXIDE SUSP 30 ML CUP PO PRN (20:00)
[2018-01-05] MEDS ORDERED: PILL SPLITTER OTHER PRN (20:15)
[2018-01-05] MEDS: DULoxetine HCl DR 60 MG CAP PO SCH (20:42)
[2018-01-05] MEDS: CITALOPRAM HYDROBROMIDE 20 MG TAB PO SCH (20:43)
[2018-01-05] MEDS ORDERED: GABAPENTIN 400 MG CAP PO SCH (21:00)
[2018-01-05 21:03] LABS: BICARBONATE 20.2 MEQ/L (21.0-32.0); BLOOD UREA NITROGEN 13 MG/DL (7-18); CALCIUM 8.7 MG/DL (8.5-10.1); CHLORIDE 107 MEQ/L (98-107); CREATININE 1.14 MG/DL (0.50-1.00); GLOMERULAR FILTRATION RATE 50 ML/MIN (>89); GLUCOSE,RANDOM 132 MG/DL (74-106); SODIUM (NA) 140 MEQ/L (136-145)
[2018-01-05 21:04] LABS: CHOLESTEROL 339 MG/DL (120-200)
[2018-01-05 21:07] LABS: CHOLESTEROL/ HDL RATIO 10.21 RATIO; HDL CHOLESTEROL 33.2 MG/DL (40.0-60.0); TRIGLYCERIDES 556 MG/DL (42-150)
[2018-01-05] MEDS: GABAPENTIN 400 MG CAP PO SCH (21:30)
[2018-01-05 22:49] LABS: HEMOGLOBIN A1C 5.2 % (4.3-6.0)
[2018-01-06 06:37] VITALS: BP 140/72; PULSE 73; RESP 18; TEMP 98.1; O2SAT 94
[2018-01-06] MEDS: CITALOPRAM HYDROBROMIDE 20 MG TAB PO SCH ×2 (08:24→21:32)
[2018-01-06] MEDS: GABAPENTIN 400 MG CAP PO SCH ×2 (08:24→21:32)
[2018-01-06] MEDS: lamoTRIgine 100 MG TAB PO SCH (08:24)
[2018-01-06] MEDS: DULoxetine HCl DR 60 MG CAP PO SCH ×2 (08:24→21:32)
[2018-01-06 09:55] LABS: BICARBONATE 21.9 MEQ/L (21.0-32.0); BLOOD UREA NITROGEN 15 MG/DL (7-18); CALCIUM 8.6 MG/DL (8.5-10.1); CHLORIDE 106 MEQ/L (98-107); CREATININE 1.04 MG/DL (0.50-1.00); GLOMERULAR FILTRATION RATE 55 ML/MIN (>89); GLUCOSE,RANDOM 196 MG/DL (74-106); SODIUM (NA) 139 MEQ/L (136-145)
[2018-01-06 09:56] LABS: CHOLESTEROL 353 MG/DL (120-200); TRIGLYCERIDES 550 MG/DL (42-150)
[2018-01-06 09:58] LABS: CHOLESTEROL/ HDL RATIO 9.86 RATIO; HDL CHOLESTEROL 35.8 MG/DL (40.0-60.0)
--- NOTE | 2018-01-06 10:25 | HHI.HP ---
Provisional Diagnosis Admission Date Jan 05, 2018 at 17:15 [place]. Bipolar disorder, Borderline personality disorder, PTSD Certification of Person's Competence To Provide Express and Informed Consent I have personally examined Tania Torres , a person being served at [facility] on, Jan 06, 2018 10:11. Express and informed consent means consent voluntarily given in writing, by a competent person, after sufficient explanation and disclosure of the subject matter involved to enable the person to make a knowing and willful decision without any element of force, fraud, deceit, duress, or other form of constraint or coercion. This person is 18 years of age or older, is not now known to be incompetent to consent to treatment with a guardian advocate, and does not have a health care surrogate or proxy currently making medical treatment decisions. I have found this person to be one of the following: [xxx] Competent to provide express and informed consent, as defined above, for voluntary admission to this facility and is competent to provide express and informed consent for treatment. He/she has the consistent capacity to make well reasoned, willful, and knowing decisions concerning his or her medical or mental health treatment. The person fully and consistently understands the purpose of the admission for examination/placement and is fully capable of personally exercising all rights assured [place] Incompetent to provide express and informed consent to voluntary admission, and this is incompetent to provide express and informed consent to treatment. The person must be transferred to involuntary status and a petition for a guardian advocate filed with the Circuit Court. [] Refusing to provide express and informed consent to voluntary admission but is competent to provide express and informed consent for treatment. The person must be discharged or transferred to involuntary status. Form shall be completed within 24 hours of a person's arrival at the receiving facility and filed in the clinical record of each person: 1. Admitted on a voluntary basis 2. Permitted to provide express and informed consent to his/her own treatment 3. Allowed to transfer from involuntary to voluntary status 4. Prior to permitting a person to consent to his or her own treatment after having been previously found incompetent to consent to treatment. History of Present Illness Capacity: Has Capacity HPI Patient is a 52-year-old woman, but domiciled with boyfriend, currently homeless, unemployed on SSI and SSD, has 4 children, with a past psychiatric history of bipolar disorder, borderline personality disorder, anxiety disorder, PTSD, with multiple psychiatric admissions, multiple suicide attempts, last seen here at [place] in April 2017 but had recent inpatient psychiatric hospitalization couple of months ago this year, with a past medical history significant for COPD, marijuana use disorder was recently admitted to the medical service after suicide attempt via overdose which patient was then transferred to the inpatient psychiatry unit for further evaluation and management. As per the [facility] patient was found sitting on the curb by police with a possible overdose that she had admitted taking 8 tablets of Lamictal to hurt herself. Patient was found lying hospital bed noted become cooperative. Patient states that she has suicidal tendencies and had try to kill herself every year. Patient states the last time she attempted to end her life was in July of this year. Patient denies having any specific stressor or event which contributed to her recent overdose. Patient states that she will try to commit suicide by taking 8-10 tablets of Lamictal, feeling hopeless , worthless in the context of a recent argument with boyfriend. Patient states that she feels hopeless due to being homeless and feels that there is no end to being homeless and feels tired. Patient was presented with the possibility of being referred to an assisted living facility as she has income from [employer] but states that she would "rather be homeless than to leave my boyfriend". Patient states that her goals upon this admission is to have her hip evaluated as she had suffered a fall recently and for her medications to be adjusted. Patient reports having had decreased energy, concentration, feeling depressed along with feeling hopeless and helpless with decreased sleep recently and having suicide ideation worsening for the past couple weeks. Patient this time agrees to be open to the possibility of being referred to an assisted living facility upon stabilization and discharge. Patient this time continues to have suicide ideation and feeling depressed. Patient denies any perceptional services or delusions at this time. Family psychiatric history: Father with previous diagnoses of bipolar disorder Past psychiatric history: Previous psychiatric diagnosis of bipolar disorder, borderline personality disorder, PTSD, anxiety disorder. Previous psychiatric admissions, multiple previous suicide attempts, has outpatient mental health provider at [facility] with Dr. Sultana last seen 2 weeks ago. Substance use history: Marijuana use every other day, one joint at a time. Patient reports tobacco use 1 pack per day, alcohol use "rarely", denies use of any other drugs. Past medical history: COPD Allergies: Aspirin, NSAIDs, latex, ibuprofen Social history: with domiciled with boyfriend, states is in custodial. Patient currently homeless, unemployed on SSI and SSD, has 4 children, no background a legal history. Highest education is high school. Review of Systems Except as stated in HPI: all other systems reviewed are Neg Past Psych History Violence risk - others (6 mos) Chronic elevated due to past suicide attempts, borderline personality disorder and currently with acute risk due to recent suicide attempt. Violence risk - self (6 mos) Low Substance Abuse History Drugs/Alcohol past 12 months Marijuana use every other day, one joint at a time. Patient reports tobacco use 1 pack per day, alcohol use "rarely", denies use of any other drugs. Past Family Social History Coded Allergies: divalproex sodium (Verified Allergy, Severe, Anaphylaxis, 01/04/18) latex (Verified Allergy, Severe, Rash, 01/04/18) lithium (Verified Allergy, Severe, Anaphylaxis, 01/04/18) NSAIDS (Non-Steroidal Anti-Inflamma (Verified Allergy, Unknown, 01/04/18) aspirin (Verified Allergy, Unknown, 01/04/18) diclofenac (Verified Allergy, Unknown, 01/04/18) etodolac (Verified Allergy, Unknown, 01/04/18) flurbiprofen (Verified Allergy, Unknown, 01/04/18) ibuprofen (Verified Allergy, Unknown, 01/04/18) indomethacin (Verified Allergy, Unknown, 01/04/18) ketoprofen (Verified Allergy, Unknown, 01/04/18) ketorolac (Verified Allergy, Unknown, 01/04/18) naproxen (Verified Allergy, Unknown, 01/04/18) oxaprozin (Verified Allergy, Unknown, 01/04/18) Active Scripts Multivitamin with Folic Acid (Thera Tablet) 400 Mcg Tablet, 1 TAB PO DAILY, #30 Prov:Tahir Kang MD 06/08/17 Lamotrigine (Lamictal) 100 Mg Tab, 100 MG PO DAILY for Mental Health for 1 Day, #1 TAB 0 Refills Order is to update med rec only. Pt has supply at home. Prov:eNmesio Eddy MD 05/07/17 Gabapentin (Neurontin) 400 Mg Cap, 800 MG PO QID for Health for 15 Days, CAP 1 Refill Prov:Nemesio Eddy MD 08/18/16 Discontinued Reported Medications Hydroxyzine Pamoate (Vistaril) 25 Mg Cap, 50 MG PO HS, CAP 0 Refills 05/05/17 Discontinued Scripts Citalopram (Celexa) 20 Mg Tab, 10 MG PO HS for Mental Health for 10 Days, TAB 2 Refills Prov:Nemesio Eddy MD 05/07/17 Duloxetine (Dylan BANSAL) 60 Mg Capdr, 60 MG PO BID for 15 Days, CAP 1 Refill Prov:Nemesio Eddy MD 08/18/16 Lidocaine (Lidoderm) 5 % Adh..patch, 2 PATCH T-DERMAL DAILY for 10 Days Prov:Tahir Kang MD 06/08/17 Sitagliptin (Januvia) 50 Mg Tab, 50 MG PO DAILY, #30 TAB Prov:Tahir Kang MD 06/08/17 Famotidine (Famotidine) 20 Mg Tab, 20 MG PO BID, #60 TAB Prov:Tahir Kang MD 06/08/17 Sennosides-Docusate Sodium (Gnp Senna Plus 8.6-50 mg) 8.6 Mg-50 Mg Tab, 1 TAB PO BID Y for CONSTIPATION, #60 TAB Prov:Tahir Kang MD 06/08/17 Zolpidem (Ambien) 5 Mg Tab, 5 MG PO HS Y for INSOMNIA, #30 TAB Prov:Tahir Kang MD 06/08/17 [chlorproMAZINE] 50 MG TAB No Conflict Check, 50 MG PO Q12HR, #60 Prov:Tahir Kang MD 06/08/17 Citalopram (Celexa) 20 Mg Tab, 20 MG PO DAILY, #30 TAB Prov:Tahir Kang MD 06/08/17 Methocarbamol (Methocarbamol) 500 Mg Tab, 750 MG PO Q8HR Y for MUSCLE SPASM, # 90 TAB Prov:Tahir Kang MD 06/08/17 Gabapentin (Neurontin) 400 Mg Cap, 400 MG PO TID for Pain Management, #90 CAP Prov:Tahir Kang MD 06/08/17 Oxycodone-Acetaminophen (Endocet) 10-325 mg Tab, 1-2 TAB PO Q4H Y for Pain Management, #60 TAB 0 Refills Prov:Tahir Kang MD 06/08/17 Enoxaparin Inj (Enoxaparin Inj) 40 Mg/0.4 Ml Syr, 40 MG SQ DAILY for Blood Clot Prevention, #7 SYRINGE 0 Refills Prov:Tahir Kang MD 06/08/[address] (Cymbalta ) 60 Mg Capdr, 60 MG PO BID, #60 CAP 0 Refills Prov:Tahir Kang MD 06/08/17 [Dextrose 50% In Curt (Vial) Inj] 50 ML INJ No Conflict Check, 50 ML IV PUSH UNSCH Y for HYPOGLYCEMIA-SEE COMMENTS for 5 Days, ML Prov:Monique Chaudhari 05/28/17 [Glucagon Inj] 1 MG/ML INJ No Conflict Check, 1 MG OTHER UNSCH Y for HYPOGLYCEMIA-SEE COMMENTS for 5 Days Prov:Monique Chaudhari 05/28/17 Walker with Front Wheels (Walker with Front Wheels) 1 Mis Mis, EA .ROUTE DIRECTED, #1 0 Refills Prov:Elvis Moreno 05/24/17 Commode 3-in-1 (Commode 3-in-1) 1 Mis Mis, EA .ROUTE DIRECTED, #1 0 Refills Prov:Elvis Moreno 05/24/17 Sitagliptin (Januvia) 50 Mg Tab, 100 MG PO DAILY for Blood Sugar Management for 1 Day, #2 TAB 0 Refills Order is to update med rec only. Pt has supply at home. Prov:Nemesio Eddy MD 05/07/17 [Chlorpromazine] 100 MG TAB No Conflict Check, 200 MG PO BID for Mental Health for 1 Day, 0 Refills Order is to update med rec only. Pt has supply at home. Prov:Nemesio Eddy MD 05/07/17 Current Medications Medications (Trade) Dose Ordered Sig/Artemio Route Start Time Stop Time Status Last Admin (Atarax) 50 mg Q6H PRN PO 01/05/18 20:00 01/05/18 20:43 (Benadryl) 50 mg HS PRN PO 01/05/18 20:00 (Benadryl Inj) 50 mg HS PRN IM 01/05/18 20:00 (Tylenol) 650 mg Q4H PRN PO 01/05/18 20:00 (Milk Of Magnesia Liq) 30 ml DAILY PRN PO 01/05/18 20:00 (Mag-Al Plus Susp Liq) 30 ml Q6H PRN PO 01/05/18 20:00 (CeleXA) 10 mg HS PO 01/05/18 21:00 01/05/18 20:43 (Cymbalta Dr) 60 mg BID PO 01/05/18 21:00 01/06/18 08:24 (Pill Splitter) 1 ea UNSCH PRN OTHER 01/05/18 20:15 (LaMICtal) 100 mg DAILY PO 01/06/18 09:00 01/06/18 08:24 (Neurontin) 800 mg BID PO 01/05/18 21:30 01/06/18 08:24 (CeleXA) 20 mg DAILY PO 01/06/18 09:00 01/06/18 08:24 (Habitrol 21 Mg Patch.24 Hr) 1 patch DAILY PRN T-DERMAL 01/05/18 22:30 Miscellaneous Information 1 HS T-DERMAL 01/06/18 21:00 Family Psych History Father with bipolar disorder Social History with domiciled with boyfriend, states is in custodial. Patient currently homeless, unemployed on SSI and SSD, has 4 children, no background a legal history. Highest education is high school. Patient's Strengths (min. 2) Verbal and communicative Physical Exam Patient not noted to be in acute distress, no gross motor abnormalities, no tremors or EPS, no noted psychomotor retardation or agitation. Vital Signs Vital Signs Date Time Temp Pulse Resp B/P (MAP) Pulse Ox O2 Delivery O2 Flow Rate FiO2 01/06/18 06:37 98.1 73 18 140/72 (94) 94 Lab Results Test 01/05/18 20:06 01/06/18 09:00 Blood Urea Nitrogen 13 MG/DL 15 MG/DL Creatinine 1.14 MG/DL 1.04 MG/DL Random Glucose 132 MG/DL 196 MG/DL Calcium Level 8.7 MG/DL 8.6 MG/DL Sodium Level 140 MEQ/L 139 MEQ/L Potassium Level 3.7 MEQ/L 3.8 MEQ/L Chloride Level 107 MEQ/L 106 MEQ/L Carbon Dioxide Level 20.2 MEQ/L 21.9 MEQ/L Anion Gap 13 MEQ/L 11 MEQ/L Estimat Glomerular Filtration Rate 50 ML/MIN 55 ML/MIN Hemoglobin A1c 5.2 % Triglycerides Level 556 MG/DL 550 MG/DL Cholesterol Level 339 MG/DL 353 MG/DL LDL Cholesterol MG/DL HDL Cholesterol 33.2 MG/DL 35.8 MG/DL Cholesterol/HDL Ratio 10.21 RATIO 9.86 RATIO Mental Status Examination Appearance: Disheveled Consciousness: Alert Orientation: Person, Place, Date/Time Speech: Unremarkable Language: Adequate Fund of Knowledge: Inadequate Attention and Concentration: Adequate Memory: Unremarkable Mood: Sad Affect: Sad Thought Process & Associations: Linear Thought Content: Appropriate Hallucination Type: None Delusion Type: None Suicidal Ideation: Yes Suicidal Plan: No Suicidal Intention: Yes Homicidal Ideation: No Homicidal Plan: No Homicidal Intention: No Insight: Fair Judgment: Impulsive Assessment & Plan Problem List: (1) Bipolar disorder ICD Codes: F31.9 - Bipolar disorder, unspecified Status: Acute (2) Borderline personality disorder ICD Codes: F60.3 - Borderline personality disorder Assessment & Plan Estimated LOS: 5-7 days. Patient is a 52 y/o woman who carries a diagnosis of bipolar disorder, borderline personality disorder, anxiety disorder, PTSD, multiple psychiatric admissions, multiple suicide attempts who was brought in by [facility] due to recent overdose with Lamictal in the context of psychosocial stressors which patient continues to endorse suicidal ideations. Patient has chronic risk for self harm due to multiple prior suicide attempts, borderline personality disorder, and currently acute risk due to recent overdose. Patient admitted under voluntary admission, has capacity to consent with treatment, will continue on citalopram 10mg HS, lamotrigine 100mg PO daily , duloxetine 60mg BID, trazodone 100mg HS, gabapentin 800mg BID, thorazine 100mg BID. Continue to monitor mood and behavior. Hospitalist consult pending. Collateral consult pending. Social interventions for psychosocial assessment. Discharge planning in progress. Discharge Planning To be determined Jamar Banuelos MD Jan 06, 2018 10:25
[2018-01-06] MEDS: MULTIVITAMIN TAB PO SCH (10:30)
[2018-01-06] MEDS ORDERED: lamoTRIgine 100 MG TAB PO SCH (10:30)
[2018-01-06] MEDS: NICOTINE 21 MG/24 HR PATCH T-DERMAL PRN (12:37)
[2018-01-06] MEDS ORDERED: GABAPENTIN 400 MG CAP PO SCH (13:00)
[2018-01-06 16:22] LABS: HEMOGLOBIN A1C 5.2 % (4.3-6.0)
--- NOTE | 2018-01-06 17:46 | PD.CONS ---
[facility] By [facility] Care Physician Rohan Alejandre MD Diagnoses: History of Present Illness 52-year-old female with history of bipolar disorder recently admitted for intentional Lamictal overdose. Patient says she is feeling right, apart from continued sacral pain. Denies any chest pain or shortness breath. Denies any dizziness. Denies nausea or vomiting. Denies fevers or chills. Denies any dysuria. Denies diarrhea or constipation. Recent imaging of coccyx shows fracture on 01/04. Review of Systems Except as stated in HPI: all other systems reviewed are Neg Past Family Social History Allergies: Coded Allergies: divalproex sodium (Verified Allergy, Severe, Anaphylaxis, 01/04/18) latex (Verified Allergy, Severe, Rash, 01/04/18) lithium (Verified Allergy, Severe, Anaphylaxis, 01/04/18) NSAIDS (Non-Steroidal Anti-Inflamma (Verified Allergy, Unknown, 01/04/18) aspirin (Verified Allergy, Unknown, 01/04/18) diclofenac (Verified Allergy, Unknown, 01/04/18) etodolac (Verified Allergy, Unknown, 01/04/18) flurbiprofen (Verified Allergy, Unknown, 01/04/18) ibuprofen (Verified Allergy, Unknown, 01/04/18) indomethacin (Verified Allergy, Unknown, 01/04/18) ketoprofen (Verified Allergy, Unknown, 01/04/18) ketorolac (Verified Allergy, Unknown, 01/04/18) naproxen (Verified Allergy, Unknown, 01/04/18) oxaprozin (Verified Allergy, Unknown, 01/04/18) Past Medical History Bipolar disorder Personality disorder PTSD Psychosis Anxiety Paranoia Diabetes mellitus Past Surgical History 4 Left leg repair status post trauma. Reported Medications Reported Meds & Active Scripts Active Thera Tablet (Multivitamin with Folic Acid) 400 Mcg Tablet 1 Tab PO DAILY Lamictal (Lamotrigine) 100 Mg Tab 100 Mg PO DAILY 1 Days Order is to update med rec only. Pt has supply at home. Neurontin (Gabapentin) 400 Mg Cap 800 Mg PO QID 15 Days Family History Unknown family history Social History Patient smokes 1 pack per day. Occasional alcohol use. Marijuana use. Denies other illicit drugs. Physical Exam Vital Signs Vital Signs Date Time Temp Pulse Resp B/P (MAP) Pulse Ox O2 Delivery O2 Flow Rate FiO2 01/06/18 06:37 98.1 73 18 140/72 (94) 94 01/05/18 18:20 97.9 60 17 125/59 (81) 98 Physical Exam GENERAL: This is a well-nourished, well-developed patient, in no apparent distress. SKIN: No rashes, ecchymoses or lesions. Cool and dry. HEAD: Atraumatic. Normocephalic. No temporal or scalp tenderness. EYES: Pupils equal round and reactive. Extraocular motions intact. No scleral icterus. No injection or drainage. ENT: Nose without bleeding, purulent drainage or septal hematoma. Throat without erythema, tonsillar hypertrophy or exudate. Uvula midline. Airway patent. NECK: Trachea midline. No JVD or lymphadenopathy. Supple, nontender, no meningeal signs. CARDIOVASCULAR: Regular rate and rhythm without murmurs, gallops, or rubs. RESPIRATORY: Clear to auscultation. Breath sounds equal bilaterally. No wheezes , rales, or rhonchi. GASTROINTESTINAL: Abdomen soft, non-tender, nondistended. No hepato-splenomegaly , or palpable masses. No guarding. MUSCULOSKELETAL: Extremities without clubbing, cyanosis, or edema. No joint tenderness, effusion, or edema noted. No calf tenderness. Negative Homans sign bilaterally.patient does have small hematoma posterior to sacrum. No broken skin. Slightly tender. NEUROLOGICAL: Awake and alert. Cranial nerves II through XII intact. Motor and sensory grossly within normal limits. Five out of 5 muscle strength in all muscle groups. Normal speech. Laboratory Laboratory Tests Test 01/05/18 20:06 01/06/18 09:00 Blood Urea Nitrogen 13 15 Creatinine 1.14 1.04 Random Glucose 132 196 Calcium Level 8.7 8.6 Sodium Level 140 139 Potassium Level 3.7 3.8 Chloride Level 107 106 Carbon Dioxide Level 20.2 21.9 Anion Gap 13 11 Estimat Glomerular Filtration Rate 50 55 Hemoglobin A1c 5.2 5.2 Triglycerides Level 556 550 Cholesterol Level 339 353 LDL Cholesterol HDL Cholesterol 33.2 35.8 Cholesterol/HDL Ratio 10.21 9.86 Result Diagram: 01/06/18 0900 Assessment and Plan Assessment and Plan //Bipolar disorder //Recent suicide attempt = Management as per psychiatry. //Recent drug overdose. Lamictal level pending. = Management as per psychiatry. //Diabetes mellitus. Recent A1c 5.2. Nondiabetic range. Will start on diabetic diet. //Hypertriglyceridemia. Start omega-3 supplementation. //Tobaccoism. Cessation counseling provided. //Coccyx fracture. Acetaminophen as needed. Discussed Condition With Patient, nurse Blake Alexander MD Jan 06, 2018 17:46
[2018-01-06 18:00] VITALS: BP 117/56; PULSE 84; RESP 16; TEMP 98.1; O2SAT 95
[2018-01-06] MEDS ORDERED: Custom Consult Pharmacy 1 EA OTHER SCH (18:00)
[2018-01-06] MEDS ORDERED: LIDOCAINE HCL 5% PATCH T-DERMAL ONE (20:00)
[2018-01-06] MEDS: REMOVE OLD NICOTINE PATCH T-DERMAL SCH (21:00)
[2018-01-07 06:49] VITALS: BP 123/74; PULSE 76; RESP 16; TEMP 97.5; O2SAT 96
[2018-01-07] MEDS: DULoxetine HCl DR 60 MG CAP PO SCH ×2 (09:47→21:14)
[2018-01-07] MEDS: CITALOPRAM HYDROBROMIDE 20 MG TAB PO SCH ×2 (09:47→21:15)
[2018-01-07] MEDS: MULTIVITAMIN TAB PO SCH (09:47)
[2018-01-07] MEDS: GABAPENTIN 400 MG CAP PO SCH ×2 (09:47→18:00)
[2018-01-07] MEDS: lamoTRIgine 100 MG TAB PO SCH (09:47)
[2018-01-07] MEDS: ACETAMINOPHEN 325 MG TAB PO PRN ×2 (12:06→21:15)
--- NOTE | 2018-01-07 15:17 | HHI.PR ---
Subjective Remarks Patient reports that sacral pain continues. Denies any chest pain or shortness of breath Objective Vital Signs Date Time Temp Pulse Resp B/P (MAP) Pulse Ox O2 Delivery O2 Flow Rate FiO2 01/07/18 06:49 97.5 76 16 123/74 (90) 96 01/06/18 18:00 98.1 84 16 117/56 (76) 95 I/O 01/06/18 01/06/18 01/06/18 01/07/18 01/07/18 01/07/18 07:00 15:00 23:00 07:00 15:00 23:00 Intake Total 600 ml 1200 ml Balance 600 ml 1200 ml Intake Oral 600 ml 1200 ml Result Diagram: 01/06/18 0900 Objective Remarks GENERAL: Patient lying in bed. Appears uncomfortable. SKIN: Warm and dry. HEAD: Normocephalic. EYES: No scleral icterus. No injection or drainage. NECK: Supple, trachea midline. No JVD or lymphadenopathy. CARDIOVASCULAR: Regular rate and rhythm without murmurs, gallops, or rubs. RESPIRATORY: Breath sounds equal bilaterally. No accessory muscle use. GASTROINTESTINAL: Abdomen soft, non-tender, nondistended. MUSCULOSKELETAL: No cyanosis, or edema. Moving bilateral upper and lower extremities BACK: Nontender without obvious deformity. No CVA tenderness. A/P Assessment and Plan //Bipolar disorder //Recent suicide attempt = Management as per psychiatry. //Recent drug overdose. Lamictal level pending. = Lamotrigine level from last admission still pending. //Diabetes mellitus. Recent A1c 5.2. Nondiabetic range. Diabetic diet //Hypertriglyceridemia. Start omega-3 supplementation. //Tobaccoism. Cessation counseling provided. //Hypertriglyceridemia. Triglycerides in the 500s. Fish oil twice daily. //Coccyx fracture. Acetaminophen as needed. = Can add tramadol. Discharge Planning We will continue to follow. Blake Alexander MD Jan 07, 2018 15:17
--- NOTE | 2018-01-07 17:10 | HHI.PYPN ---
Subjective Remarks Patient seen for follow, chart reviewed. Discussion nursing staff reported the patient slept well with no behavioral issues. Patient was found lying hospital watching television noted B, cooperative. Patient states that she slept well, appetite has been good mood has been "not too bad, I am better". Patient states he spoke with her boyfriend which went well. Patient continues report that she woke up this morning having suicidal ideations stating that she feels tired about feeling this way every day. Patient reports having less depressed mood today with plans on opening up for [employer] with her boyfriend sometime in the future. Patient at this time reporting feeling anxious stated that she was previously on gabapentin 800 mg 4 times a day and will like her dose increased and she is currently on twice daily dosing. Patient denies any delusions or perceptual disturbances at this time. Review of Systems Except as stated in HPI: all other systems reviewed are Neg Mental Status Examination Appearance: Appropriate Consciousness: Alert Orientation: Person, Place, Date/Time Speech: Unremarkable Language: Adequate Fund of Knowledge: Inadequate Attention and Concentration: Adequate Memory: Unremarkable Mood: Sad, Anxious Affect: Sad Thought Process & Associations: Linear Thought Content: Appropriate Hallucination Type: None Delusion Type: None Suicidal Ideation: Yes Suicidal Plan: No Suicidal Intention: No Homicidal Ideation: No Homicidal Plan: No Homicidal Intention: No Insight: Fair Judgment: Impulsive Results Vitals/IOs Vital Signs Date Time Temp Pulse Resp B/P (MAP) Pulse Ox O2 Delivery O2 Flow Rate FiO2 01/07/18 06:49 97.5 76 16 123/74 (90) 96 Intake and Output 01/07/18 01/07/18 01/08/18 08:00 16:00 00:00 Intake Total 600 ml 600 ml Balance 600 ml 600 ml Assessment & Plan Problem List: (1) Bipolar disorder ICD Codes: F31.9 - Bipolar disorder, unspecified Status: Acute (2) Borderline personality disorder ICD Codes: F60.3 - Borderline personality disorder Assessment & Plan Patient this time continues report feeling depressed but stated her mood is slightly better today but continues to have suicidal ideations. We will increase gabapentin 300 mg p.o. 3 times daily for anxiety, continue rest of medications. Continue monitor mood and behavior. Discharge planning in progress. Justification for Cont. Inpt. At risk for further decompensation if at lower level of care. Discharge Planning To be determined. Jamar Banuelos MD Jan 07, 2018 17:10
[2018-01-07] MEDS: traMADol HCL 50 MG TAB PO PRN (18:30)
[2018-01-07 18:55] VITALS: BP 103/55; PULSE 77; RESP 16; TEMP 98.1; O2SAT 95
[2018-01-07] MEDS: REMOVE OLD NICOTINE PATCH T-DERMAL SCH (21:00)
[2018-01-08 06:47] VITALS: BP 101/55; PULSE 77; RESP 16; TEMP 97.8; O2SAT 94
[2018-01-08] MEDS: ATORVASTATIN 10 MG TAB PO SCH (09:16)
[2018-01-08] MEDS: MULTIVITAMIN TAB PO SCH (09:16)
[2018-01-08] MEDS: lamoTRIgine 100 MG TAB PO SCH (09:16)
[2018-01-08] MEDS: CITALOPRAM HYDROBROMIDE 20 MG TAB PO SCH ×2 (09:16→20:44)
[2018-01-08] MEDS: GABAPENTIN 400 MG CAP PO SCH ×3 (09:16→18:00)
[2018-01-08] MEDS: DULoxetine HCl DR 60 MG CAP PO SCH ×2 (09:17→20:44)
[2018-01-08] MEDS: traMADol HCL 50 MG TAB PO PRN ×2 (09:17→20:45)
--- NOTE | 2018-01-08 10:34 | HHI.PYPN ---
Subjective Remarks Patient seen for follow, chart reviewed. Discussion nursing staff reported the patient has been visible on unit attending groups. Patient was found lying hospital bed noted B, cooperative. Patient states that she is feeling "good" stating that her first heart this morning was not to try to kill herself. Patient states she slept great, eating and drinking well, states her pain has been better with the addition of tramadol. Patient denies any perceptual disturbances and it reports having being attending groups. Patient plans on getting connected with Zeyad Ureña upon discharge and continues to consider returning back to her boyfriend homeless or referral to an assisted living facility. Review of Systems Except as stated in HPI: all other systems reviewed are Neg Mental Status Examination Appearance: Appropriate Consciousness: Alert Orientation: Person, Place, Date/Time Speech: Unremarkable Language: Adequate Fund of Knowledge: Inadequate Attention and Concentration: Adequate Memory: Unremarkable Mood: Sad (Decreasing) Affect: Sad (Decreasing) Thought Process & Associations: Linear Thought Content: Appropriate Hallucination Type: None Delusion Type: None Suicidal Ideation: Yes (Denies today) Suicidal Plan: No Suicidal Intention: No Homicidal Ideation: No Homicidal Plan: No Homicidal Intention: No Insight: Fair Judgment: Impulsive Results Vitals/IOs Vital Signs Date Time Temp Pulse Resp B/P (MAP) Pulse Ox O2 Delivery O2 Flow Rate FiO2 01/08/18 06:47 97.8 77 16 101/55 (70) 94 Intake and Output 01/08/18 01/08/18 01/08/18 07:59 15:59 23:59 Intake Total 480 ml Balance 480 ml Assessment & Plan Problem List: (1) Bipolar disorder ICD Codes: F31.9 - Bipolar disorder, unspecified Status: Acute (2) Borderline personality disorder ICD Codes: F60.3 - Borderline personality disorder Assessment & Plan Patient noted to have improvement in mood, denying any suicide ideations this morning but will require to continue to monitor mood and behavior for consistency. Continue current treatment. Continue monitor mood and behavior. Discharge planning in progress. Justification for Cont. Inpt. At risk for further decompensation if at lower level of care Jamar Banuelos MD Jan 08, 2018 10:34
[2018-01-08] MEDS ORDERED: GLUCAGON 1 MG/ML VIAL OTHER PRN (14:30)
[2018-01-08] MEDS ORDERED: DEXTROSE 50% IN WATER 50 ML VIAL(D50) IV PUSH PRN (14:30)
--- NOTE | 2018-01-08 14:32 | HHI.PR ---
Subjective Remarks Follow-up on patient with coccyx fracture and coccydynia. Patient seen and examined. Patient states she is able to adequately control her coccyx pain with combination of tramadol and ice. She is requesting placed on a regular diet. She denies any other acute medical problems at this time. She denies any fever or chills. Denies any chest pain or shortness of breath. Denies any nausea, vomiting or abdominal pain. Objective Vitals Vital Signs Date Time Temp Pulse Resp B/P (MAP) Pulse Ox O2 Delivery O2 Flow Rate FiO2 01/08/18 06:47 97.8 77 16 101/55 (70) 94 01/07/18 18:55 98.1 77 16 103/55 (71) 95 I/O 01/07/18 01/07/18 01/07/18 01/08/18 01/08/18 01/08/18 07:00 15:00 23:00 07:00 15:00 23:00 Intake Total 1200 ml 360 ml 480 ml Balance 1200 ml 360 ml 480 ml Intake Oral 1200 ml 360 ml 480 ml Result Diagram: 01/06/18 0900 Objective Remarks GENERAL: Well-nourished, well-developed female patient in NAD. Awake and alert. Lying on her side reading a book. Appears comfortable. SKIN: Warm and dry. No generalized rash. HEENT: Normocephalic. Atraumatic. EOMI. No sclera icterus. Airway patent. MMM. NECK: Supple. Trachea midline. CARDIOVASCULAR: Regular rate and rhythm. No murmurs rubs or gallops appreciated. RESPIRATORY: Nonlabored. Clear to auscultation. Breath sounds equal bilaterally. GASTROINTESTINAL: Abdomen soft, non-tender, nondistended. Normoactive bowel sounds x4. MUSCULOSKELETAL: No obvious deformities. Extremities without clubbing, cyanosis , or edema. NEUROLOGICAL: Awake and alert. Cranial nerves II through XII grossly intact. Moving all extremities spontaneously. Motor function grossly intact. Normal speech. PSYCHIATRIC: Calm and cooperative. Procedures None A/P Assessment and Plan Bipolar disorder Recent suicide attempt with intentional overdose -Continue management per psychiatric team Recent drug overdose -Lamotrigine level from last admission still pending. Coccyx fracture -Tramadol and acetaminophen as needed. -PT eval/tx SHARMILA, suspect secondary to dehydration Creatinine trending down -encourage po intake -Avoid nephrotoxic agents -Monitor kidney function as indicated Diabetes mellitus Patient denies history of diabetes Recent A1c 5.2. -Change to heart healthy diet -Continue to monitor blood sugars and if remain adequately controlled will DC Accu-Cheks Hypertriglyceridemia Triglycerides in the 500s -Continue patient on statin therapy -Continue on fish oil twice daily -Recommend patient have lipids rechecked in 1 month as an outpatient Tobaccoism -Cessation counseling provided. DVT prophylaxis -Patient is ambulatory Neisha Rodas Jan 08, 2018 14:32
[2018-01-08] MEDS: INSULIN ASPART SUPPLEMENTAL SCALE SQ SCH ×2 (17:00→21:00)
[2018-01-08 18:25] VITALS: BP 129/78; PULSE 81; RESP 18; TEMP 97.4; O2SAT 93
[2018-01-08] MEDS: REMOVE OLD NICOTINE PATCH T-DERMAL SCH (21:00)
[2018-01-09 06:14] VITALS: BP 97/56; PULSE 76; RESP 18; TEMP 97.7; O2SAT 96
[2018-01-09] MEDS: INSULIN ASPART SUPPLEMENTAL SCALE SQ SCH ×4 (08:00→21:00)
[2018-01-09] MEDS: MULTIVITAMIN TAB PO SCH (09:17)
[2018-01-09] MEDS: CITALOPRAM HYDROBROMIDE 20 MG TAB PO SCH ×2 (09:17→20:53)
[2018-01-09] MEDS: DULoxetine HCl DR 60 MG CAP PO SCH ×2 (09:17→20:53)
[2018-01-09] MEDS: GABAPENTIN 400 MG CAP PO SCH ×3 (09:18→17:26)
[2018-01-09] MEDS: lamoTRIgine 100 MG TAB PO SCH (09:18)
[2018-01-09] MEDS: traMADol HCL 50 MG TAB PO PRN ×3 (09:18→21:02)
[2018-01-09] MEDS: ATORVASTATIN 10 MG TAB PO SCH (09:19)
[2018-01-09] MEDS: NICOTINE 21 MG/24 HR PATCH T-DERMAL PRN (09:22)
--- NOTE | 2018-01-09 12:22 | HHI.PR ---
Subjective Remarks Follow-up on patient with coccyx fracture and coccydynia. Patient seen and examined. Patient denies any complaints. She denies any fever or chills. Denies any chest pain or shortness of breath. Denies any nausea, vomiting or abdominal pain. Discussed with nursing staff, no acute issues noted Objective Vitals Vital Signs Date Time Temp Pulse Resp B/P (MAP) Pulse Ox O2 Delivery O2 Flow Rate FiO2 01/09/18 06:14 97.7 76 18 97/56 (70) 96 01/08/18 21:45 18 01/08/18 18:25 97.4 81 18 129/78 (95) 93 I/O 01/08/18 01/08/18 01/08/18 01/09/18 01/09/18 01/09/18 07:00 15:00 23:00 07:00 15:00 23:00 Intake Total 480 ml 360 ml Balance 480 ml 360 ml Intake Oral 480 ml 360 ml Result Diagram: 01/06/18 0900 Objective Remarks GENERAL: Well-nourished, well-developed female patient in NAD. Awake and alert. Sitting up in bed eating lunch, appears comfortable. SKIN: Warm and dry. No generalized rash. HEENT: Normocephalic. Atraumatic. EOMI. No sclera icterus. Airway patent. MMM. NECK: Supple. Trachea midline. CARDIOVASCULAR: Regular rate and rhythm. No murmurs rubs or gallops appreciated. RESPIRATORY: Nonlabored. Clear to auscultation. Breath sounds equal bilaterally. GASTROINTESTINAL: Abdomen soft, non-tender, nondistended. Normoactive bowel sounds x4. MUSCULOSKELETAL: No obvious deformities. Extremities without clubbing, cyanosis , or edema. NEUROLOGICAL: Awake and alert. Cranial nerves II through XII grossly intact. Moving all extremities spontaneously. Motor function grossly intact. Normal speech. PSYCHIATRIC: Calm and cooperative. Procedures None A/P Assessment and Plan Bipolar disorder Recent suicide attempt with intentional overdose -Continue management per psychiatric team Recent drug overdose -Lamotrigine level from last admission still pending. Coccyx fracture -Tramadol and acetaminophen as needed. -PT eval/tx - home with no PT recommendations SHARMILA, suspect secondary to dehydration Creatinine trending down -encourage po intake -Avoid nephrotoxic agents -Monitor kidney function as indicated Diabetes mellitus Patient denies history of diabetes Recent A1c 5.2. -Change to heart healthy diet -Continue to monitor blood sugars and if remain adequately controlled will DC Accu-Cheks Hypertriglyceridemia Triglycerides in the 500s -Continue patient on statin therapy -Continue on fish oil twice daily -Recommend patient have lipids rechecked in 1 month as an outpatient Tobaccoism -Cessation counseling provided. DVT prophylaxis -Patient is ambulatory She appears stable from hospitalist standpoint. [facility] will sign off. Please reconsult if needed. Neisha Rodas Jan 09, 2018 12:22
[2018-01-09] MEDS ORDERED: THERTAB15 PO (12:25)
[2018-01-09] MEDS ORDERED: OMEGCAP PO (12:25)
[2018-01-09] MEDS ORDERED: LIPI10TA PO (12:25)
[2018-01-09] MEDS ORDERED: TRAM50 PO (12:39)
--- NOTE | 2018-01-09 17:19 | HHI.PYPN ---
Subjective Remarks Patient seen for follow, chart reviewed. Discussion nursing staff reported the patient medically cleared, eating and drinking well, interacted with staff. Patient was found heavily on unit noted B, cooperative. Patient states that she has some difficulty sleeping last night she states she did not receive trazodone in the evening. She states that she also had a not so good visit with her significant other yesterday and was making her feel somewhat depressed today. Patient also mentions that she spoke with her daughter who recommended her to move back to [place] where she is considering but in the interim is considering assistance with referral to an assisted living facility although patient has option of staying with her boyfriend someplace. Patient denies any suicide ideations at this time. Brief supportive psychotherapy provided. Review of Systems Except as stated in HPI: all other systems reviewed are Neg Mental Status Examination Appearance: Appropriate Consciousness: Alert Orientation: Person, Place, Date/Time Speech: Unremarkable Language: Adequate Fund of Knowledge: Inadequate Attention and Concentration: Adequate Memory: Unremarkable Mood: Sad (Decreasing) Affect: Appropriate Thought Process & Associations: Linear Thought Content: Appropriate Hallucination Type: None Delusion Type: None Suicidal Ideation: No Suicidal Plan: No Suicidal Intention: No Homicidal Ideation: No Homicidal Plan: No Homicidal Intention: No Insight: Fair Judgment: Impulsive Results Vitals/IOs Vital Signs Date Time Temp Pulse Resp B/P (MAP) Pulse Ox O2 Delivery O2 Flow Rate FiO2 01/09/18 06:14 97.7 76 18 97/56 (70) 96 Assessment & Plan Problem List: (1) Bipolar disorder ICD Codes: F31.9 - Bipolar disorder, unspecified Status: Acute (2) Borderline personality disorder ICD Codes: F60.3 - Borderline personality disorder Assessment & Plan Patient this time reporting some depressed mood today after recent visit with her boyfriend which did not go well but denying any suicide ideations at this time. Patient continues with difficulty with emotional regulation due to borderline personality traits. Patient agreeable to referral to an assisted living facility she states did not want to live with her boyfriend at this time. We will continue current treatment and add trazodone 50 mg p.o. at bedtime for sleep disturbance. Will continue monitor mood and behavior. Discharge planning a progress. Justification for Cont. Inpt. At risk for further decompensation if at lower level of care Jamar Banuelos MD Jan 09, 2018 17:19
[2018-01-09] MEDS ORDERED: traZODone HCL 50 MG TAB PO SCH (21:00)
[2018-01-09] MEDS: REMOVE OLD NICOTINE PATCH T-DERMAL SCH (21:00)
[2018-01-10 05:08] VITALS: BP 85/52; PULSE 74; RESP 16; TEMP 97.7; O2SAT 94
[2018-01-10] MEDS ORDERED: CELE20TA PO (07:39)
[2018-01-10] MEDS ORDERED: DULO1CAP3 PO (07:39)
[2018-01-10] MEDS ORDERED: chlorproMAZINE PO (07:39)
[2018-01-10] MEDS ORDERED: LAMO100 PO (07:39)
[2018-01-10] MEDS ORDERED: TRAZ50TA12 PO (07:39)
[2018-01-10] MEDS ORDERED: CITA10TA4 PO (07:42)
[2018-01-10] MEDS: INSULIN ASPART SUPPLEMENTAL SCALE SQ SCH ×2 (08:00→11:05)
[2018-01-10] MEDS: CITALOPRAM HYDROBROMIDE 20 MG TAB PO SCH (08:39)
[2018-01-10] MEDS: MULTIVITAMIN TAB PO SCH (08:39)
[2018-01-10] MEDS: GABAPENTIN 400 MG CAP PO SCH ×2 (08:39→12:32)
[2018-01-10] MEDS: lamoTRIgine 100 MG TAB PO SCH (08:39)
[2018-01-10] MEDS: DULoxetine HCl DR 60 MG CAP PO SCH (08:39)
[2018-01-10] MEDS: traMADol HCL 50 MG TAB PO PRN ×2 (08:40→12:32)
[2018-01-10] MEDS: ATORVASTATIN 10 MG TAB PO SCH (08:40)
--- NOTE | 2018-01-10 12:50 | PD.TTN ---
Patient Problems 1. Discharge planning 2. Medication compliance 3. Knowledge deficit 4. Lack of coping skills Progress Toward Goals Provider Present: Dr. Matty Ghosh, Dr. Loulou Banuelos Provider Input: Dr. Banuelos: Pt and expected plan is for pt to dc to live with a friend. Nurse(s) Input: not present Psychiatric Counselors Present: Ame Yuen, [employer], Asuncion Dexter, [facility], Zackary Carroll Jr., [facility], Amira Charles, [facility] Psych Therapist Input: Amira Starr: Pt discharge to be finalized for pt to live with a friend. Group Spec/RT/OT/PENG Present: GINETTE Etienne, Zafar Palacios, WENDIE Group Spec/RT/OT/PENG Input: Zafar Adhikari: Pt has attended select groups, she has been appropriate. Occupational Therapist Input: Zafar Adhikari: Pt has been able to demonstrate independence with self care and ADLS. Discharge Plan Other (Discharge imminent; to live with a friend.) Documentation Scribe: Zafar Palacios MS. OTR Zafar Palacios OTSam Jan 10, 2018 12:50
--- NOTE | 2018-01-10 16:06 | HHI.DS ---
Psychiatry Discharge Summary Inpatient Psychiatric care?: Yes Advance Directive: No Reason Not Provided: given papers Mental Health AdvanceDirective: No Health Care Proxy: No Admission Admission Date Jan 05, 2018 at 17:15 Admission Diagnosis: (1) Bipolar disorder ICD Code: F31.9 - Bipolar disorder, unspecified (2) Borderline personality disorder ICD Code: F60.3 - Borderline personality disorder Brief History Patient is a 52-year-old woman, but domiciled with boyfriend, currently homeless, unemployed on SSI and SSD, has 4 children, with a past psychiatric history of bipolar disorder, borderline personality disorder, anxiety disorder, PTSD, with multiple psychiatric admissions, multiple suicide attempts, last seen here at [facility] in April 2017 but had recent inpatient psychiatric hospitalization couple of months ago this year, with a past medical history significant for COPD, marijuana use disorder was recently admitted to the medical service after suicide attempt via overdose which patient was then transferred to the inpatient psychiatry unit for further evaluation and management. As per the [place] act patient was found sitting on the curb by police with a possible overdose that she had admitted taking 8 tablets of Lamictal to hurt herself. Patient was found lying hospital bed noted become cooperative. Patient states that she has suicidal tendencies and had try to kill herself every year. Patient states the last time she attempted to end her life was in July of this year. Patient denies having any specific stressor or event which contributed to her recent overdose. Patient states that she will try to commit suicide by taking 8-10 tablets of Lamictal, feeling hopeless , worthless in the context of a recent argument with boyfriend. Patient states that she feels hopeless due to being homeless and feels that there is no end to being homeless and feels tired. Patient was presented with the possibility of being referred to an assisted living facility as she has income from [employer] but states that she would "rather be homeless than to leave my boyfriend". Patient states that her goals upon this admission is to have her hip evaluated as she had suffered a fall recently and for her medications to be adjusted. Patient reports having had decreased energy, concentration, feeling depressed along with feeling hopeless and helpless with decreased sleep recently and having suicide ideation worsening for the past couple weeks. Patient this time agrees to be open to the possibility of being referred to an assisted living facility upon stabilization and discharge. Patient this time continues to have suicide ideation and feeling depressed. Patient denies any perceptional services or delusions at this time. Family psychiatric history: Father with previous diagnoses of bipolar disorder Past psychiatric history: Previous psychiatric diagnosis of bipolar disorder, borderline personality disorder, PTSD, anxiety disorder. Previous psychiatric admissions, multiple previous suicide attempts, has outpatient mental health provider at [facility] with Dr. Sultana last seen 2 weeks ago. Substance use history: Marijuana use every other day, one joint at a time. Patient reports tobacco use 1 pack per day, alcohol use "rarely", denies use of any other drugs. Past medical history: COPD Allergies: Aspirin, NSAIDs, latex, ibuprofen Social history: with domiciled with boyfriend, states is in residential. Patient currently homeless, unemployed on SSI and SSD, has 4 children, no background a legal history. Highest education is high school. Tobacco Use In Past 30 Days: 5 or More Cigarettes/Day Alcohol Use: Monthly or Less Hospital Course Patient is a 52-year-old woman, but domiciled with boyfriend, currently homeless, unemployed on SSI and SSD, has 4 children, with a past psychiatric history of bipolar disorder, borderline personality disorder, anxiety disorder, PTSD, with multiple psychiatric admissions, multiple suicide attempts, last seen here at [facility] in April 2017 but had recent inpatient psychiatric hospitalization couple of months ago this year, with a past medical history significant for COPD, marijuana use disorder was recently admitted to the medical service after suicide attempt via overdose which patient was then transferred to the inpatient psychiatry unit for further evaluation and management. Patient was continued on citalopram and titrated to 20mg daily and 10mg HS, lamotrigine 100mg PO daily, duloxetine 60mg PO BID, trazodone 50mg PO HS, gabapentin 800mg PO TID, chlorpromazine 100mg PO BID. Patient tolerated medications well, patient was adherent to medication regimen and recommendations as per primary medical team and noted with improved mood and denying any further suicidal ideations. Upon discharge patient stated feeling good, noted to be calm and cooperative with staff. Patient was counseled importance of engaging in dialectical behavioral therapy which patient would benefit from and agreed to be connected to through outpatient clinic. She agreed to continuing medical recommendations, treatment and cooperate for continuity of care. Patient; denies SI, HI, AVH or delusions. Supportive psychotherapy provided. Suicide and violence risk assessment on day of discharge both suggest lower imminent risk, and the patient's level of function is adequate for planned level of outpatient care. Patient has maximized benefit from this inpatient psychiatric hospital stay and to return to psychiatric emergency room for any concerning psychiatric symptoms. Patient agrees with plan. Results Blood Pressure 85 / 52 Vital Signs Date Time Temp Pulse Resp B/P (MAP) Pulse Ox O2 Delivery O2 Flow Rate FiO2 01/10/18 05:08 97.7 74 16 85/52 (63) 94 Laboratory Results Test 01/06/18 09:00 Cholesterol Level 353 MG/DL (120-200) HDL Cholesterol 35.8 MG/DL (40.0-60.0) Hemoglobin A1c 5.2 % (4.3-6.0) LDL Cholesterol MG/DL (0-99) Triglycerides Level 550 MG/DL (42-150) Summary of Procedures None Pending results at discharge: No Medications # of Antipsychotic meds at D/C: 1 Approp Antipsych med options 1 - Minimum of three failed multiple trials of monotherapy. 2 - Documented plan to taper to monotherapy due to previous use of multiple meds OR cross-taper in progress at D/C. 3 - Documentation of augmentation of Clozapine. 4 - Justification other than those listed in allowable values 1-3, document here : Discharge Discharge Date: Jan 10, 2018 Discharge Diagnosis: (1) Bipolar disorder ICD Code: F31.9 - Bipolar disorder, unspecified Status: Acute (2) Borderline personality disorder ICD Code: F60.3 - Borderline personality disorder Pt Condition on Discharge: Stable Discharge Disposition: Discharge Home Discharge Instructions Diet Instructions: As Tolerated, No Restrictions Activities you can perform: Regular-No Restrictions Scheduled Appointment: Zeyad Laura Appointment Date: Jan 10, 2018 Appointment Time: 02:00pm Discharge Time > 30 minutes Mental Status Examination Appearance: Appropriate Consciousness: Alert Orientation: Person, Place, Date/Time Speech: Unremarkable Language: Adequate Fund of Knowledge: Inadequate Attention and Concentration: Adequate Memory: Unremarkable Mood: Appropriate Affect: Appropriate Thought Process & Associations: Intact, Goal directed, Linear Thought Content: Appropriate Hallucination Type: None Delusion Type: None Suicidal Ideation: No Suicidal Plan: No Suicidal Intention: No Homicidal Ideation: No Homicidal Plan: No Homicidal Intention: No Insight: Adequate Judgment: Adequate Discharge/Advance Care Plan Health Problems: (1) Bipolar disorder (2) Borderline personality disorder Goals to promote your health * To prevent worsening of your condition and complications * To maintain your health at the optimal level Directions to meet your goals Take your medications as prescribed Follow your dietary instruction Follow activity as directed Keep your appointments as scheduled Take your immunizations and boosters as scheduled If your symptoms worsen call your PCP, if no PCP go to Urgent Care Center or Emergency Room For 08/02 questions related to your inpatient stay or results of tests pending at discharge, please contact Dr. Jamar Banuelos at Smoking is Dangerous to Your Health. Avoid second hand smoking Jamar Banuelos MD Jan 10, 2018 16:06
== END 2018-01-10 13:35 | disposition home or self-care (01) | DRG 885 ==
LOC: H4EA 17:15
PROVIDERS: ADMIT Student in an Organized Health Care Education/Training Program; ATTEND Student in an Organized Health Care Education/Training Program
DX: F31.9 Bipolar disorder, unspecified (principal); N17.9 Acute kidney failure, unspecified; S32.2XXA Fracture of coccyx, initial encounter for closed fracture; E11.9 Type 2 diabetes mellitus without complications; E87.2 Acidosis; R45.851 Suicidal ideations; F60.3 Borderline personality disorder; F43.10 Post-traumatic stress disorder, unspecified; F17.210 Nicotine dependence, cigarettes, uncomplicated; F41.9 Anxiety disorder, unspecified; J44.9 Chronic obstructive pulmonary disease, unspecified; F12.90 Cannabis use, unspecified, uncomplicated; E78.1 Pure hyperglyceridemia; W19.XXXA Unspecified fall, initial encounter; G47.9 Sleep disorder, unspecified; Z59.0 Homelessness; Z91.5 Personal history of self-harm; Z81.8 Family history of other mental and behavioral disorders; T42.6X2A Poisoning by other antiepileptic and sedative-hypnotic drugs, intentional self-harm, initial encounter; R42 Dizziness and giddiness; M53.3 Sacrococcygeal disorders, not elsewhere classified; K21.9 Gastro-esophageal reflux disease without esophagitis; G47.30 Sleep apnea, unspecified; M19.90 Unspecified osteoarthritis, unspecified site; Z79.899 Other long term (current) drug therapy
CPT/HCPCS: 71045; 72220; 80048; 80053; 80061; 80175; 80307; 81001; 82948; 83036; 83540; 84443; 85025; 93005; 96360; 96361; 96372; G0378; J2550; J7030